=== PATIENT | female | born 1970 | race American Indian/Alaskan Native ===

== ENCOUNTER 2020-08-31 18:21 | Emergency (ER) | payer OTHER ==
[~2020-08-31] VITALS: Ht 170.2 cm; Wt 59.0 kg
[~2020-08-31 18:21] MED LIST: Ativan0.5 MG PO; SUBLOCADE SC; VENLAFAXINE HCL50 MG PO
== END 2020-08-31 20:34 | disposition home or self-care (01) ==
LOC: ER 18:21
DX: F11.23 Opioid dependence with withdrawal (principal); F17.200 Nicotine dependence, unspecified, uncomplicated; Z88.8 Allergy status to other drugs, medicaments and biological substances; Z79.899 Other long term (current) drug therapy
CPT/HCPCS: 99283

== ENCOUNTER 2020-10-05 07:00 | Emergency (ER) | payer OTHER ==
[~2020-10-05] VITALS: Ht 170.2 cm; Wt 70.3 kg
[~2020-10-05 07:00] MED LIST changes: +Atarax10 MG PO; +Ativan1 MG PO; +ESZO2 PO; +MINIPRESS2 M1 PO; +VENL150ER PO; +VENL75ER PO; +Vistaril25 MG PO
[2020-10-05] MEDS ORDERED: ACETAMINOPHEN500 MG PO (09:15)
== END 2020-10-05 09:35 | disposition home or self-care (01) ==
LOC: ER 07:00
DX: S46.811A Strain of other muscles, fascia and tendons at shoulder and upper arm level, right arm, initial encounter (principal); F17.210 Nicotine dependence, cigarettes, uncomplicated; Z88.8 Allergy status to other drugs, medicaments and biological substances; Z79.899 Other long term (current) drug therapy; X58.XXXA Exposure to other specified factors, initial encounter; Y99.0 Civilian activity done for income or pay
CPT/HCPCS: 72125; 96372; 99284-25; J1885

== ENCOUNTER → 2020-10-19 | Outpatient (CLI) | payer OTHER ==
[~2020-10-19] MED LIST changes: +ACETAMINOPHEN500 MG PO; +GABA300 PO; +METH40; +MIRT15 PO; +PREG150 PO
[2020-10-19 17:57] LABS: Appearance, Urine Clear (Clear); Bilirubin, Urine Neg (Neg); Blood, Urine Neg (Neg); Color, Urine Yellow (P-Yellow); Glucose Qualitative, Urine Neg (Neg); Ketones, Urine Neg (Neg); Leukocyte Esterase, Urine 1+ (Neg); Nitrite, Urine Neg (Neg); Protein, Urine Neg (Neg); Specific Gravity, Urine 1.015 (1.003-1.022); Urobilinogen, Urine NORM (Normal)
[2020-10-19 18:14] LABS: Bacteria Few /hpf; Red Blood Cells, Urine 0-2 /hpf (0-2); Squamous Epithelial Cells Few /hpf (Few); White Blood Cells, Urine 0-2 /hpf (0-5)
== END ==
LOC: LAB SRC 15:07 → LAB SHORT 15:07
PROVIDERS: Nurse Practitioner Family
DX: R35.0 Frequency of micturition (principal)
CPT/HCPCS: 81001; 87086

== ENCOUNTER 2020-12-04 08:58 | Emergency (ER) | payer OTHER ==
[~2020-12-04] VITALS: Ht 170.2 cm; Wt 76.2 kg
[~2020-12-04 08:58] MED LIST changes: -GABA300 PO; -METH40; -MIRT15 PO; -PREG150 PO
[2020-12-04 10:43] LABS: BASOPHILS ABSOLUTE AUTO 0.04 K/mm3 (0.00-0.23); BASOPHILS PERCENT AUTO 1 % (0-2); EOSINOPHILS ABSOLUTE AUTO 0.14 K/mm3 (0.00-0.68); EOSINOPHILS PERCENT AUTO 3 % (0-6); Hematocrit 33.4 % (33.0-51.0); IMMATURE GRAN ABSOLUTE AUTO 0.01 K/mm3 (0.00-0.10); IMMATURE GRAN PERCENT AUTO 0 % (0-1); LYMPHOCYTES ABSOLUTE AUTO 1.03 K/mm3 (0.84-5.20); LYMPHOCYTES PERCENT AUTO 23 % (21-46); MONOCYTES ABSOLUTE AUTO 0.57 K/mm3 (0.16-1.47); MONOCYTES PERCENT AUTO 13 % (4-13); Mean Corpuscular HGB Conc 32.9 g/dL (31.5-36.5); Mean Corpuscular Volume 88 fL (80-100); Mean Platelet Volume 9.7 fL (9.1-12.4); NEUTROPHILS ABSOLUTE AUTO 2.76 K/mm3 (1.96-9.15); NEUTROPHILS PERCENT AUTO 61 % (41-73); Platelet Count 190 K/mm3 (150-400); RDW Coefficient Variation 12.3 % (11.7-14.2); Red Blood Cell Count 3.79 M/mm3 (3.80-5.20); White Blood Cell Count 4.55 K/mm3 (4.00-11.30)
[2020-12-04 10:59] LABS: Alanine Aminotransfer (ALT/SGP 43 U/L (12-78); Albumin, Blood 3.3 g/dL (3.4-5.0); Albumin/Globulin Ratio 0.9 (0.8-1.8); Alk Phos 118 U/L (50-136); Anion Gap 3 mmol/L (6-16); Aspartate Aminotrans (AST/SGOT 38 U/L (12-37); Bilirubin, Total 0.2 mg/dL (0.1-1.0); Blood Urea Nitrogen 16 mg/dL (8-24); CO2, Blood 29 mmol/L (21-32); Calcium, Blood 8.4 mg/dL (8.5-10.1); Chloride, Blood 106 mmol/L (98-108); Creatinine, Blood 0.73 mg/dL (0.40-1.00); Globulin, Blood 3.7 g/dL (2.2-4.0); Glomerular Filtration Rate >60 (60-); Glucose, Blood 100 mg/dL (70-99); Potassium, Blood 4.5 mmol/L (3.5-5.5); Sodium, Blood 138 mmol/L (136-145); Troponin I <0.015 ng/mL (0.000-0.040)
== END 2020-12-04 11:53 | disposition home or self-care (01) ==
LOC: ER 08:58
PROVIDERS: Emergency Medicine
DX: S63.502A Unspecified sprain of left wrist, initial encounter (principal); R60.0 Localized edema; R11.2 Nausea with vomiting, unspecified; R10.13 Epigastric pain; Z88.8 Allergy status to other drugs, medicaments and biological substances; Z79.899 Other long term (current) drug therapy; W06.XXXA Fall from bed, initial encounter
CPT/HCPCS: 36415; 73110; 80053; 83690; 83880; 84484; 85025; 93005; 93010; 96374; 99284-25; J2405; J2550

== ENCOUNTER 2020-12-15 14:44 | Emergency (ER) | payer OTHER ==
[~2020-12-15] VITALS: Ht 170.2 cm; Wt 77.1 kg
[2020-12-15 15:51] LABS: BASOPHILS ABSOLUTE AUTO 0.06 K/mm3 (0.00-0.23); BASOPHILS PERCENT AUTO 1 % (0-2); EOSINOPHILS ABSOLUTE AUTO 0.37 K/mm3 (0.00-0.68); EOSINOPHILS PERCENT AUTO 9 % (0-6); Hematocrit 31.8 % (33.0-51.0); Hemoglobin 10.3 g/dL (11.5-16.0); IMMATURE GRAN ABSOLUTE AUTO 0.01 K/mm3 (0.00-0.10); IMMATURE GRAN PERCENT AUTO 0 % (0-1); LYMPHOCYTES PERCENT AUTO 28 % (21-46); MONOCYTES ABSOLUTE AUTO 0.66 K/mm3 (0.16-1.47); MONOCYTES PERCENT AUTO 15 % (4-13); Mean Corpuscular HGB 28.9 pg (26.0-34.0); Mean Corpuscular HGB Conc 32.4 g/dL (31.5-36.5); Mean Corpuscular Volume 89 fL (80-100); Mean Platelet Volume 9.4 fL (9.1-12.4); NEUTROPHILS ABSOLUTE AUTO 2.04 K/mm3 (1.96-9.15); NEUTROPHILS PERCENT AUTO 47 % (41-73); Platelet Count 316 K/mm3 (150-400); RDW Coefficient Variation 12.4 % (11.7-14.2); RDW Standard Deviation 40.3 fL (35.1-46.3); Red Blood Cell Count 3.57 M/mm3 (3.80-5.20); White Blood Cell Count 4.34 K/mm3 (4.00-11.30)
[2020-12-15] MEDS ORDERED: GABA300 PO (15:57)
[2020-12-15] MEDS ORDERED: PREG150 PO (15:58)
[2020-12-15] MEDS ORDERED: MIRT15 PO (16:00)
[2020-12-15] MEDS ORDERED: METH40 (16:01)
[2020-12-15 16:15] LABS: Alanine Aminotransfer (ALT/SGP 22 U/L (12-78); Albumin, Blood 3.2 g/dL (3.4-5.0); Albumin/Globulin Ratio 0.8 (0.8-1.8); Alk Phos 118 U/L (50-136); Anion Gap 6 mmol/L (6-16); Aspartate Aminotrans (AST/SGOT 21 U/L (12-37); Bilirubin, Total 0.2 mg/dL (0.1-1.0); Blood Urea Nitrogen 10 mg/dL (8-24); Bun/Creatinine Ratio 12.6 (12.0-20.0); CO2, Blood 27 mmol/L (21-32); Calcium, Blood 8.7 mg/dL (8.5-10.1); Chloride, Blood 109 mmol/L (98-108); Creatinine, Blood 0.79 mg/dL (0.40-1.00); Globulin, Blood 4.2 g/dL (2.2-4.0); Glomerular Filtration Rate >60 (60-); Glucose, Blood 89 mg/dL (70-99); Potassium, Blood 3.8 mmol/L (3.5-5.5); Sodium, Blood 142 mmol/L (136-145); Total Protein, Blood 7.4 g/dL (6.4-8.2)
== END 2020-12-15 17:24 | disposition home or self-care (01) ==
LOC: ER 14:44
PROVIDERS: Physician Assistant
DX: R51.9 Headache, unspecified (principal); R40.4 Transient alteration of awareness; F17.210 Nicotine dependence, cigarettes, uncomplicated; M79.671 Pain in right foot; Z88.8 Allergy status to other drugs, medicaments and biological substances; Z79.899 Other long term (current) drug therapy
CPT/HCPCS: 70450; 73620; 80053; 85025; 93005; 93010; 96374; 96375; 96376; 99284-25; J1885; J2060; J2765

== ENCOUNTER 2021-08-06 10:57 | Emergency (ER) | payer OTHER ==
[~2021-08-06] VITALS: Ht 170.2 cm; Wt 72.6 kg
[~2021-08-06 10:57] MED LIST changes: +GABA300 PO; +METH40; +MIRT15 PO; +PREG150 PO
[2021-08-06 11:42] LABS: BASOPHILS PERCENT AUTO 0 % (0-2); EOSINOPHILS PERCENT AUTO 0 % (0-6); Hematocrit 33.4 % (33.0-51.0); Hemoglobin 10.8 g/dL (11.5-16.0); IMMATURE GRAN ABSOLUTE AUTO 0.02 K/mm3 (0.00-0.10); IMMATURE GRAN PERCENT AUTO 0 % (0-1); LYMPHOCYTES ABSOLUTE AUTO 0.41 K/mm3 (0.84-5.20); LYMPHOCYTES PERCENT AUTO 8 % (21-46); MONOCYTES ABSOLUTE AUTO 0.34 K/mm3 (0.16-1.47); MONOCYTES PERCENT AUTO 7 % (4-13); Mean Corpuscular HGB 28.6 pg (26.0-34.0); Mean Corpuscular HGB Conc 32.3 g/dL (31.5-36.5); Mean Corpuscular Volume 88 fL (80-100); Mean Platelet Volume 9.7 fL (9.1-12.4); NEUTROPHILS ABSOLUTE AUTO 4.17 K/mm3 (1.96-9.15); NEUTROPHILS PERCENT AUTO 84 % (41-73); Platelet Count 165 K/mm3 (150-400); RDW Coefficient Variation 12.9 % (11.7-14.2); RDW Standard Deviation 41.3 fL (35.1-46.3); Red Blood Cell Count 3.78 M/mm3 (3.80-5.20); White Blood Cell Count 4.94 K/mm3 (4.00-11.30)
[2021-08-06 11:59] LABS: Albumin, Blood 2.9 g/dL (3.4-5.0); Albumin/Globulin Ratio 0.7 (0.8-1.8); Bilirubin, Total 0.5 mg/dL (0.1-1.0); Bun/Creatinine Ratio 10.8 (12.0-20.0); Calcium, Blood 7.8 mg/dL (8.5-10.1); Creatinine, Blood 1.02 mg/dL (0.40-1.00); Globulin, Blood 4.2 g/dL (2.2-4.0); Potassium, Blood 3.1 mmol/L (3.5-5.5); Total Protein, Blood 7.1 g/dL (6.4-8.2)
== END 2021-08-06 13:20 | disposition home or self-care (01) ==
LOC: ER 10:57
PROVIDERS: Emergency Medicine
DX: U07.1 COVID-19 (principal); E87.6 Hypokalemia; F17.210 Nicotine dependence, cigarettes, uncomplicated; Z88.8 Allergy status to other drugs, medicaments and biological substances; Z79.899 Other long term (current) drug therapy
CPT/HCPCS: 36415; 71045; 71046; 80053; 85025; 99284-25; A9270; J7030; M0243; Q0243

== ENCOUNTER 2021-11-07 17:30 | Emergency (ER) | payer OTHER ==
[~2021-11-07] VITALS: Ht 167.6 cm; Wt 79.8 kg
[2021-11-07 18:15] LABS: BASOPHILS ABSOLUTE AUTO 0.05 K/mm3 (0.00-0.23); BASOPHILS PERCENT AUTO 1 % (0-2); EOSINOPHILS ABSOLUTE AUTO 0.12 K/mm3 (0.00-0.68); EOSINOPHILS PERCENT AUTO 3 % (0-6); Hematocrit 37.9 % (33.0-51.0); Hemoglobin 12.5 g/dL (11.5-16.0); IMMATURE GRAN PERCENT AUTO 0 % (0-1); LYMPHOCYTES ABSOLUTE AUTO 0.89 K/mm3 (0.84-5.20); LYMPHOCYTES PERCENT AUTO 24 % (21-46); MONOCYTES ABSOLUTE AUTO 0.47 K/mm3 (0.16-1.47); MONOCYTES PERCENT AUTO 12 % (4-13); Mean Corpuscular HGB 28.9 pg (26.0-34.0); Mean Corpuscular Volume 88 fL (80-100); Mean Platelet Volume 10.2 fL (9.1-12.4); NEUTROPHILS ABSOLUTE AUTO 2.26 K/mm3 (1.96-9.15); NEUTROPHILS PERCENT AUTO 60 % (41-73); Platelet Count 236 K/mm3 (150-400); RDW Coefficient Variation 12.6 % (11.7-14.2); RDW Standard Deviation 40.2 fL (35.1-46.3); Red Blood Cell Count 4.33 M/mm3 (3.80-5.20); White Blood Cell Count 3.79 K/mm3 (4.00-11.30)
[2021-11-07 18:33] LABS: Albumin, Blood 3.7 g/dL (3.4-5.0); Albumin/Globulin Ratio 0.9 (0.8-1.8); Bilirubin, Total 0.3 mg/dL (0.1-1.0); Calcium, Blood 8.4 mg/dL (8.5-10.1); Creatinine, Blood 1.07 mg/dL (0.40-1.00); Globulin, Blood 4.2 g/dL (2.2-4.0); Total Protein, Blood 7.9 g/dL (6.4-8.2)
[2021-11-08] MEDS ORDERED: Colace100 MG PO (22:42)
== END 2021-11-07 20:21 | disposition home or self-care (01) ==
LOC: ER 17:30
PROVIDERS: Physician Assistant
DX: R10.10 Upper abdominal pain, unspecified (principal); F17.210 Nicotine dependence, cigarettes, uncomplicated; Z79.899 Other long term (current) drug therapy; Z88.8 Allergy status to other drugs, medicaments and biological substances
CPT/HCPCS: 80053; 83690; 83735; 84484; 85025; 93005; 93010; 96374; 96375; 99284-25; A9270; J1170; J2405; J2550; J7030

== ENCOUNTER 2021-11-13 16:19 | Emergency (ER) | payer OTHER ==
[~2021-11-13] VITALS: Ht 170.2 cm; Wt 79.4 kg
[~2021-11-13 16:19] MED LIST changes: +Colace100 MG PO
[2021-11-13 17:03] LABS: BASOPHILS ABSOLUTE AUTO 0.04 K/mm3 (0.00-0.23); BASOPHILS PERCENT AUTO 1 % (0-2); EOSINOPHILS ABSOLUTE AUTO 0.11 K/mm3 (0.00-0.68); EOSINOPHILS PERCENT AUTO 2 % (0-6); Hematocrit 33.4 % (33.0-51.0); Hemoglobin 10.9 g/dL (11.5-16.0); IMMATURE GRAN ABSOLUTE AUTO 0.01 K/mm3 (0.00-0.10); IMMATURE GRAN PERCENT AUTO 0 % (0-1); LYMPHOCYTES ABSOLUTE AUTO 0.89 K/mm3 (0.84-5.20); LYMPHOCYTES PERCENT AUTO 18 % (21-46); MONOCYTES ABSOLUTE AUTO 0.52 K/mm3 (0.16-1.47); MONOCYTES PERCENT AUTO 11 % (4-13); Mean Corpuscular HGB 28.7 pg (26.0-34.0); Mean Corpuscular HGB Conc 32.6 g/dL (31.5-36.5); Mean Corpuscular Volume 88 fL (80-100); Mean Platelet Volume 9.7 fL (9.1-12.4); NEUTROPHILS ABSOLUTE AUTO 3.36 K/mm3 (1.96-9.15); NEUTROPHILS PERCENT AUTO 68 % (41-73); Platelet Count 227 K/mm3 (150-400); RDW Coefficient Variation 12.8 % (11.7-14.2); RDW Standard Deviation 40.9 fL (35.1-46.3); White Blood Cell Count 4.93 K/mm3 (4.00-11.30)
[2021-11-13 17:20] LABS: Source, Urine Clean Catch
[2021-11-13 17:22] LABS: Albumin, Blood 3.6 g/dL (3.4-5.0); Bilirubin, Total 0.2 mg/dL (0.1-1.0); Bun/Creatinine Ratio 13.9 (12.0-20.0); Calcium, Blood 8.4 mg/dL (8.5-10.1); Creatinine, Blood 1.01 mg/dL (0.40-1.00); Globulin, Blood 3.7 g/dL (2.2-4.0); Potassium, Blood 3.6 mmol/L (3.5-5.5); Total Protein, Blood 7.3 g/dL (6.4-8.2)
[2021-11-13 17:25] LABS: Appearance, Urine Clear (Clear); Bilirubin, Urine Neg (Neg); Blood, Urine Neg (Neg); Color, Urine Yellow (P-Yellow); Glucose Qualitative, Urine Neg (Neg); Ketones, Urine Neg (Neg); Leukocyte Esterase, Urine Neg (Neg); Nitrite, Urine Neg (Neg); Protein, Urine Neg (Neg); Specific Gravity, Urine 1.015 (1.003-1.022); Urobilinogen, Urine NORM (Normal)
[2021-11-13] MEDS ORDERED: SENNA LAXATIVE8.6 MG PO (17:46)
[2021-11-13] MEDS ORDERED: Magic Bullet10 MG PR (17:46)
[2021-11-13] MEDS ORDERED: MAGCIT300 PO (17:46)
== END 2021-11-13 17:59 | disposition home or self-care (01) ==
LOC: ER 16:19
PROVIDERS: Physician Assistant
DX: K59.00 Constipation, unspecified (principal); F17.210 Nicotine dependence, cigarettes, uncomplicated
CPT/HCPCS: 36415; 80053; 81003; 83690; 85025; 99284; A9270; J2405; J7030

== ENCOUNTER 2022-02-05 14:46 | Emergency (ER) | payer OTHER ==
[~2022-02-05] VITALS: Ht 170.2 cm; Wt 86.2 kg
[~2022-02-05 14:46] MED LIST changes: +MAGCIT300 PO; +Magic Bullet10 MG PR; +SENNA LAXATIVE8.6 MG PO
[2022-02-05 15:37] LABS: Hematocrit 36.6 % (33.0-51.0); Hemoglobin 11.8 g/dL (11.5-16.0); Mean Corpuscular HGB 28.8 pg (26.0-34.0); Mean Corpuscular HGB Conc 32.2 g/dL (31.5-36.5); Mean Corpuscular Volume 89 fL (80-100); Mean Platelet Volume 9.5 fL (9.1-12.4); Platelet Count 242 K/mm3 (150-400); RDW Coefficient Variation 12.1 % (11.7-14.2); RDW Standard Deviation 39.6 fL (35.1-46.3); White Blood Cell Count 4.02 K/mm3 (4.00-11.30)
[2022-02-05 16:00] LABS: Albumin, Blood 3.3 g/dL (3.4-5.0); Albumin/Globulin Ratio 0.9 (0.8-1.8); Bilirubin, Total 0.2 mg/dL (0.1-1.0); Bun/Creatinine Ratio 19.7 (12.0-20.0); Calcium, Blood 8.6 mg/dL (8.5-10.1); Creatinine, Blood 0.76 mg/dL (0.40-1.00); Globulin, Blood 3.7 g/dL (2.2-4.0); Potassium, Blood 4.2 mmol/L (3.5-5.5)
[2022-02-05 16:32] LABS: Source, Urine Clean Catch
[2022-02-05 16:36] LABS: BASOPHILS PERCENT MAN 0 % (0-2); EOSINOPHILS ABSOLUTE MAN 0.04 K/mm3 (0.00-0.68); EOSINOPHILS PERCENT MAN 1 % (0-6); LYMPHOCYTES ABSOLUTE MAN 1.12 K/mm3 (0.84-5.20); LYMPHOCYTES PERCENT MAN 28 % (21-46); MONOCYTES ABSOLUTE MAN 0.32 K/mm3 (0.16-1.47); MONOCYTES PERCENT MAN 8 % (4-13); NEUTROPHILS ABSOLUTE MAN 2.53 K/mm3 (1.96-9.15); SEG NEUTROPHILS PERCENT MAN 63 % (41-73); TOTAL CELLS COUNTED 100
[2022-02-05 16:42] LABS: Appearance, Urine Clear (Clear); Bilirubin, Urine Neg (Neg); Blood, Urine Neg (Neg); Color, Urine Yellow (P-Yellow); Glucose Qualitative, Urine Neg (Neg); Ketones, Urine Neg (Neg); Leukocyte Esterase, Urine 1+ (Neg); Nitrite, Urine Neg (Neg); Protein, Urine Neg (Neg); Specific Gravity, Urine 1.025 (1.003-1.022); Urobilinogen, Urine NORM (Normal)
[2022-02-05 17:02] LABS: Bacteria Mod /hpf; Red Blood Cells, Urine 0-2 /hpf (0-2); Squamous Epithelial Cells Few /hpf (Few)
[2022-02-05] MEDS ORDERED: PROM25 PO (18:22)
== END 2022-02-05 19:12 | disposition home or self-care (01) ==
LOC: ER 14:46
PROVIDERS: Physician Assistant
DX: R10.13 Epigastric pain (principal); R10.812 Left upper quadrant abdominal tenderness; R11.2 Nausea with vomiting, unspecified; F41.9 Anxiety disorder, unspecified; F17.210 Nicotine dependence, cigarettes, uncomplicated; Z88.8 Allergy status to other drugs, medicaments and biological substances; Z79.899 Other long term (current) drug therapy
CPT/HCPCS: 36415; 71045; 80053; 81001; 83690; 84484; 85025; 87086; 93005; 93010; A9270; J1790

== ENCOUNTER 2022-02-23 11:00 | Emergency (ER) | payer OTHER ==
[~2022-02-23] VITALS: Ht 170.2 cm; Wt 86.2 kg
[~2022-02-23 11:00] MED LIST changes: +PROM25 PO
[2022-02-23 11:31] LABS: BASOPHILS ABSOLUTE AUTO 0.03 K/mm3 (0.00-0.23); BASOPHILS PERCENT AUTO 1 % (0-2); EOSINOPHILS ABSOLUTE AUTO 0.07 K/mm3 (0.00-0.68); EOSINOPHILS PERCENT AUTO 2 % (0-6); Hematocrit 39.2 % (33.0-51.0); Hemoglobin 12.5 g/dL (11.5-16.0); IMMATURE GRAN ABSOLUTE AUTO 0.01 K/mm3 (0.00-0.10); IMMATURE GRAN PERCENT AUTO 0 % (0-1); LYMPHOCYTES PERCENT AUTO 15 % (21-46); MONOCYTES ABSOLUTE AUTO 0.48 K/mm3 (0.16-1.47); MONOCYTES PERCENT AUTO 12 % (4-13); Mean Corpuscular HGB 28.6 pg (26.0-34.0); Mean Corpuscular HGB Conc 31.9 g/dL (31.5-36.5); Mean Corpuscular Volume 90 fL (80-100); Mean Platelet Volume 9.3 fL (9.1-12.4); NEUTROPHILS ABSOLUTE AUTO 2.81 K/mm3 (1.96-9.15); NEUTROPHILS PERCENT AUTO 70 % (41-73); Platelet Count 255 K/mm3 (150-400); RDW Coefficient Variation 12.1 % (11.7-14.2); RDW Standard Deviation 39.8 fL (35.1-46.3); Red Blood Cell Count 4.37 M/mm3 (3.80-5.20)
[2022-02-23 11:48] LABS: Albumin, Blood 3.7 g/dL (3.4-5.0); Albumin/Globulin Ratio 0.9 (0.8-1.8); Bilirubin, Total 0.2 mg/dL (0.1-1.0); Calcium, Blood 9.1 mg/dL (8.5-10.1); Creatinine, Blood 0.81 mg/dL (0.40-1.00); Potassium, Blood 4.4 mmol/L (3.5-5.5); Total Protein, Blood 7.7 g/dL (6.4-8.2)
[2022-02-23] MEDS ORDERED: BUPR75 (13:06)
[2022-02-23 13:12] LABS: Source, Urine Clean Catch
[2022-02-23 13:14] LABS: Appearance, Urine Clear (Clear); Bilirubin, Urine Neg (Neg); Blood, Urine Neg (Neg); Color, Urine Yellow (P-Yellow); Glucose Qualitative, Urine Neg (Neg); Ketones, Urine Neg (Neg); Leukocyte Esterase, Urine Neg (Neg); Nitrite, Urine Neg (Neg); Protein, Urine Neg (Neg); Specific Gravity, Urine 1.015 (1.003-1.022); Urobilinogen, Urine NORM (Normal)
== END 2022-02-23 15:09 | disposition home or self-care (01) ==
LOC: ER 11:00
PROVIDERS: Physician Assistant
DX: R10.13 Epigastric pain (principal); F17.210 Nicotine dependence, cigarettes, uncomplicated; Z79.899 Other long term (current) drug therapy
CPT/HCPCS: 36415; 74177; 80053; 81003; 83690; 85025; 96374; 96375; 99284-25; J1885; J2405; J2550; J7030; Q9967

== ENCOUNTER 2022-06-24 08:20 | Day surgery (SDC) | payer OTHER ==
[~2022-06-24] VITALS: Ht 170.2 cm; Wt 88.5 kg
[~2022-06-24 08:20] MED LIST changes: +BUPR75 PO; +Methadone S5 MG/5 ML PO
--- NOTE | 2022-06-24 10:25 | NUR ---
06/24/22 1025 Aliya Serrano KNEE POST
--- NOTE | 2022-06-24 12:45 | NUR ---
06/24/22 1245 Rose,Spenser PT D/C'D HOME, AOX3, VS WNL, RESP CTA ON RA, PAIN 12/19 ACCEPTABLE TO PT TO D/C HOME, DENIES ANY C/O, DENIES ANY NEEDS, DENIES N/V, D/C INSTRUCTIONS GIVEN TO SON AND PT, SON AND PT V/U OF D/C INSTRUCTIONS, PERSONAL BELONGINGS RETURNED TO PT, PIV D/C'D CANNULA INTACT COVERED WITH 2X2 GAUZE AND COBAN, PT D/C'D VIA WC TO CAR DRIVEN BY SON. PT D/C'D IN NAD.
== END 2022-06-24 12:33 | disposition home or self-care (01) ==
LOC: ORSCSDS 08:20
PROVIDERS: Orthopaedic Surgery
PROC: 0SBD4ZZ Excision of Left Knee Joint, Percutaneous Endoscopic Approach (ICD-10-PCS; principal; 2022-06-24 09:45)
PROC: 0SBD0ZZ Excision of Left Knee Joint, Open Approach (ICD-10-PCS; principal; 2022-06-24 09:45)
DX: S83.232A Complex tear of medial meniscus, current injury, left knee, initial encounter (principal); M23.022 Cystic meniscus, posterior horn of medial meniscus, left knee; M94.262 Chondromalacia, left knee; F17.210 Nicotine dependence, cigarettes, uncomplicated
CPT/HCPCS: J0171; J0690; J1100; J2704; J2795; J3010

== ENCOUNTER 2022-10-10 09:10 | Day surgery (SDC) | payer OTHER ==
[~2022-10-10] VITALS: Ht 170.2 cm; Wt 87.6 kg
[2022-10-10] MEDS ORDERED: ASPI81CH (09:30)
[2022-10-10] MEDS ORDERED: METH40 (09:31)
[2022-10-10] MEDS ORDERED: MIRT30 (09:31)
[2022-10-10] MEDS ORDERED: PREG100 (09:31)
[2022-10-10] MEDS ORDERED: METF500 (09:45)
== END 2022-10-10 12:16 | disposition home or self-care (01) ==
LOC: ORSCSDS 09:10
PROVIDERS: Student in an Organized Health Care Education/Training Program
PROC: 0DJD8ZZ Inspection of Lower Intestinal Tract, Via Natural or Artificial Opening Endoscopic (ICD-10-PCS; principal; 2022-10-10 10:30)
PROC: 0DB78ZX Excision of Stomach, Pylorus, Via Natural or Artificial Opening Endoscopic, Diagnostic (ICD-10-PCS; principal; 2022-10-10 10:30)
PROC: 0DB58ZX Excision of Esophagus, Via Natural or Artificial Opening Endoscopic, Diagnostic (ICD-10-PCS; principal; 2022-10-10 10:30)
PROC: 0DB98ZX Excision of Duodenum, Via Natural or Artificial Opening Endoscopic, Diagnostic (ICD-10-PCS; principal; 2022-10-10 10:30)
DX: R11.0 Nausea (principal); R10.9 Unspecified abdominal pain; K21.9 Gastro-esophageal reflux disease without esophagitis; K29.70 Gastritis, unspecified, without bleeding; K92.1 Melena; R15.0 Incomplete defecation; B37.81 Candidal esophagitis; K64.8 Other hemorrhoids; Z87.891 Personal history of nicotine dependence; E11.9 Type 2 diabetes mellitus without complications; Z79.899 Other long term (current) drug therapy; Z79.84 Long term (current) use of oral hypoglycemic drugs; Z79.82 Long term (current) use of aspirin
CPT/HCPCS: 82947; 88305; 88342; J2704; J7120

== ENCOUNTER 2023-03-24 13:35 | Emergency (ER) | payer OTHER ==
[~2023-03-24] VITALS: Ht 170.2 cm; Wt 89.4 kg
[~2023-03-24 13:35] MED LIST changes: +ASPI81CH; +METF500; +MIRT30; +PREG100
[2023-03-24 14:10] LABS: BASOPHILS ABSOLUTE AUTO 0.03 K/mm3 (0.00-0.23); BASOPHILS PERCENT AUTO 1 % (0-2); EOSINOPHILS ABSOLUTE AUTO 0.15 K/mm3 (0.00-0.68); EOSINOPHILS PERCENT AUTO 3 % (0-6); Hematocrit 34.6 % (33.0-51.0); Hemoglobin 11.3 g/dL (11.5-16.0); IMMATURE GRAN ABSOLUTE AUTO 0.01 K/mm3 (0.00-0.10); IMMATURE GRAN PERCENT AUTO 0 % (0-1); LYMPHOCYTES ABSOLUTE AUTO 0.96 K/mm3 (0.84-5.20); LYMPHOCYTES PERCENT AUTO 21 % (21-46); MONOCYTES ABSOLUTE AUTO 0.56 K/mm3 (0.16-1.47); MONOCYTES PERCENT AUTO 12 % (4-13); Mean Corpuscular HGB Conc 32.7 g/dL (31.5-36.5); Mean Corpuscular Volume 89 fL (80-100); Mean Platelet Volume 9.5 fL (9.1-12.4); NEUTROPHILS ABSOLUTE AUTO 2.82 K/mm3 (1.96-9.15); NEUTROPHILS PERCENT AUTO 62 % (41-73); Platelet Count 221 K/mm3 (150-400); RDW Coefficient Variation 12.6 % (11.7-14.2); RDW Standard Deviation 40.6 fL (35.1-46.3); White Blood Cell Count 4.53 K/mm3 (4.00-11.30)
[2023-03-24 14:35] LABS: Albumin, Blood 3.5 g/dL (3.4-5.0); Albumin/Globulin Ratio 0.9 (0.8-1.8); Bilirubin, Total 0.2 mg/dL (0.1-1.0); Bun/Creatinine Ratio 8.7 (12.0-20.0); Calcium, Blood 8.3 mg/dL (8.5-10.1); Creatinine, Blood 1.04 mg/dL (0.40-1.00); Globulin, Blood 3.7 g/dL (2.2-4.0); Potassium, Blood 3.9 mmol/L (3.5-5.5); Total Protein, Blood 7.2 g/dL (6.4-8.2)
[2023-03-24 14:47] LABS: Source, Urine Clean Catch
[2023-03-24 14:59] LABS: Appearance, Urine Clear (Clear); Bilirubin, Urine Neg (Neg); Blood, Urine Neg (Neg); Color, Urine Yellow (P-Yellow); Glucose Qualitative, Urine Neg (Neg); Ketones, Urine Neg (Neg); Leukocyte Esterase, Urine 1+ (Neg); Nitrite, Urine Neg (Neg); Protein, Urine 2+ (Neg); Specific Gravity, Urine 1.025 (1.003-1.022); Urobilinogen, Urine NORM (Normal)
[2023-03-24 15:32] LABS: Bacteria Few /hpf; Mucus Mod (0-Heavy); Red Blood Cells, Urine 0-2 /hpf (0-2); Squamous Epithelial Cells Few /hpf (Few)
[2023-03-24 16:21] VITALS: BP 113/67
== END 2023-03-24 17:46 | disposition home or self-care (01) ==
LOC: ER 13:35
PROVIDERS: Physician Assistant
DX: R10.9 Unspecified abdominal pain (principal); F17.200 Nicotine dependence, unspecified, uncomplicated; Z88.8 Allergy status to other drugs, medicaments and biological substances
CPT/HCPCS: 74177; 80053; 81001; 83690; 84484; 85025; 87086; 93005; 93010; 96361; 96374-59; 99284-25; A9270; J1170; J7030; Q9967

== ENCOUNTER 2023-04-25 06:42 | Day surgery (SDC) | payer OTHER ==
[~2023-04-25] VITALS: Ht 170.2 cm; Wt 91.2 kg
[2023-04-25] MEDS ORDERED: MIRALAX17 GM (07:39)
[2023-04-25] MEDS ORDERED: Diflucan100 MG (07:39)
[2023-04-25 09:13] VITALS: BP 96/58
--- NOTE | 2023-04-25 09:23 | NUR ---
04/25/23 0923 JAYSON FRYE PT CAME IN TP PRE OP VERY DROWSY/ SEDATED ACTING (SLURRED SPEECH, FALLING ASLEEP WHEN SPOKEN TO). STATED THAT SHE TOOK ALL HER MEDS THIS MORNING WHICH INCLUDED HER TWO ANTIDEPRESSANTS AND METHADONE. PT STATES THAT SHE HASNT SLEPT IN TWO DAYS. PT IS STEADY ON FEET WHEN GETTING DRESSED AND ABLE TO WALK WITHOUT DIFFICULTY SEEN. WC OUT IN WC
== END 2023-04-25 09:09 | disposition home or self-care (01) ==
LOC: ORSCSDS 06:42
PROVIDERS: Internal Medicine Gastroenterology
PROC: 0DJD8ZZ Inspection of Lower Intestinal Tract, Via Natural or Artificial Opening Endoscopic (ICD-10-PCS; principal; 2023-04-25 08:00)
DX: R10.9 Unspecified abdominal pain (principal); K59.00 Constipation, unspecified; G47.33 Obstructive sleep apnea (adult) (pediatric); E66.9 Obesity, unspecified; F32.A Depression, unspecified; F41.1 Generalized anxiety disorder; Z68.31 Body mass index [BMI] 31.0-31.9, adult; F11.20 Opioid dependence, uncomplicated; F14.20 Cocaine dependence, uncomplicated; F10.20 Alcohol dependence, uncomplicated; F15.20 Other stimulant dependence, uncomplicated; F43.10 Post-traumatic stress disorder, unspecified; F17.210 Nicotine dependence, cigarettes, uncomplicated; Z79.82 Long term (current) use of aspirin; Z79.899 Other long term (current) drug therapy
CPT/HCPCS: 82947; J2001; J2704; J7120

== ENCOUNTER 2023-04-28 14:44 | Emergency (ER) | payer OTHER ==
[~2023-04-28] VITALS: Ht 170.2 cm; Wt 88.5 kg
[~2023-04-28 14:44] MED LIST changes: +Diflucan100 MG; +MIRALAX17 GM
[2023-04-28 15:53] LABS: BASOPHILS ABSOLUTE AUTO 0.05 K/mm3 (0.00-0.23); BASOPHILS PERCENT AUTO 1 % (0-2); EOSINOPHILS ABSOLUTE AUTO 0.19 K/mm3 (0.00-0.68); EOSINOPHILS PERCENT AUTO 3 % (0-6); Hematocrit 37.1 % (33.0-51.0); Hemoglobin 12.4 g/dL (11.5-16.0); IMMATURE GRAN ABSOLUTE AUTO 0.01 K/mm3 (0.00-0.10); IMMATURE GRAN PERCENT AUTO 0 % (0-1); LYMPHOCYTES ABSOLUTE AUTO 0.92 K/mm3 (0.84-5.20); LYMPHOCYTES PERCENT AUTO 16 % (21-46); MONOCYTES ABSOLUTE AUTO 0.65 K/mm3 (0.16-1.47); MONOCYTES PERCENT AUTO 11 % (4-13); Mean Corpuscular HGB 29.3 pg (26.0-34.0); Mean Corpuscular HGB Conc 33.4 g/dL (31.5-36.5); Mean Corpuscular Volume 88 fL (80-100); Mean Platelet Volume 9.4 fL (9.1-12.4); NEUTROPHILS ABSOLUTE AUTO 4.04 K/mm3 (1.96-9.15); NEUTROPHILS PERCENT AUTO 69 % (41-73); Platelet Count 216 K/mm3 (150-400); RDW Coefficient Variation 12.2 % (11.7-14.2); RDW Standard Deviation 39.5 fL (35.1-46.3); Red Blood Cell Count 4.23 M/mm3 (3.80-5.20); White Blood Cell Count 5.86 K/mm3 (4.00-11.30)
[2023-04-28 16:05] VITALS: BP 111/78
[2023-04-28 16:12] LABS: Albumin, Blood 3.8 g/dL (3.4-5.0); Bilirubin, Total 0.3 mg/dL (0.1-1.0); Bun/Creatinine Ratio 13.2 (12.0-20.0); Calcium, Blood 8.9 mg/dL (8.5-10.1); Creatinine, Blood 1.14 mg/dL (0.40-1.00); Globulin, Blood 3.8 g/dL (2.2-4.0); Potassium, Blood 4.2 mmol/L (3.5-5.5); Total Protein, Blood 7.6 g/dL (6.4-8.2)
== END 2023-04-28 18:51 | disposition home or self-care (01) ==
LOC: ER 14:44
PROVIDERS: Student in an Organized Health Care Education/Training Program
DX: G89.18 Other acute postprocedural pain (principal); K59.00 Constipation, unspecified; Z88.8 Allergy status to other drugs, medicaments and biological substances; Z79.899 Other long term (current) drug therapy; Z79.82 Long term (current) use of aspirin; F43.10 Post-traumatic stress disorder, unspecified; F17.210 Nicotine dependence, cigarettes, uncomplicated
CPT/HCPCS: 74177; 80053; 83690; 85025; 99284-25; Q9967

== ENCOUNTER 2023-10-26 14:20 | Emergency (ER) | payer OTHER ==
[~2023-10-26] VITALS: Ht 170.2 cm; Wt 86.2 kg
[2023-10-26 15:25] LABS: Albumin, Blood 3.3 g/dL (3.4-5.0); Bilirubin, Total 0.2 mg/dL (0.1-1.0); Bun/Creatinine Ratio 14.2 (12.0-20.0); Calcium, Blood 8.5 mg/dL (8.5-10.1); Creatinine, Blood 0.92 mg/dL (0.40-1.00); Globulin, Blood 3.4 g/dL (2.2-4.0); Magnesium, Blood 2.3 mg/dL (1.6-2.4); Total Protein, Blood 6.7 g/dL (6.4-8.2)
[2023-10-26 16:09] LABS: U Amphetamine Screen Not Detected; U Barbituate Screen Not Detected; U Benzodiazapine Screen Not Detected; U Buprenorphine Screen Not Detected; U Cannabinoids Screen Not Detected; U Cocaine Screen Not Detected; U Methadone Screen DETECTED; U Methamphetamine Screen Not Detected; U Opiates Screen Not Detected; U Oxycodone Screen Not Detected; U Phencyclidine Screen Not Detected
[2023-10-26 17:47] LABS: BASOPHILS ABSOLUTE AUTO 0.05 K/mm3 (0.00-0.23); BASOPHILS PERCENT AUTO 1 % (0-2); EOSINOPHILS ABSOLUTE AUTO 0.22 K/mm3 (0.00-0.68); EOSINOPHILS PERCENT AUTO 4 % (0-6); Hemoglobin 11.2 g/dL (11.5-16.0); IMMATURE GRAN ABSOLUTE AUTO 0.01 K/mm3 (0.00-0.10); IMMATURE GRAN PERCENT AUTO 0 % (0-1); LYMPHOCYTES ABSOLUTE AUTO 1.31 K/mm3 (0.84-5.20); LYMPHOCYTES PERCENT AUTO 26 % (21-46); MONOCYTES ABSOLUTE AUTO 0.49 K/mm3 (0.16-1.47); MONOCYTES PERCENT AUTO 10 % (4-13); Mean Corpuscular HGB 29.2 pg (26.0-34.0); Mean Corpuscular HGB Conc 32.9 g/dL (31.5-36.5); Mean Corpuscular Volume 89 fL (80-100); Mean Platelet Volume 9.5 fL (9.1-12.4); NEUTROPHILS ABSOLUTE AUTO 2.95 K/mm3 (1.96-9.15); NEUTROPHILS PERCENT AUTO 59 % (41-73); Platelet Count 200 K/mm3 (150-400); RDW Coefficient Variation 12.5 % (11.7-14.2); RDW Standard Deviation 40.5 fL (35.1-46.3); Red Blood Cell Count 3.84 M/mm3 (3.80-5.20); White Blood Cell Count 5.03 K/mm3 (4.00-11.30)
[2023-10-26 19:00] VITALS: BP 108/73
== END 2023-10-26 20:04 | disposition home or self-care (01) ==
LOC: ER 14:20
PROVIDERS: Physician Assistant
DX: R40.4 Transient alteration of awareness (principal); R44.1 Visual hallucinations; R42 Dizziness and giddiness; T42.6X5A Adverse effect of other antiepileptic and sedative-hypnotic drugs, initial encounter; F17.210 Nicotine dependence, cigarettes, uncomplicated; F43.10 Post-traumatic stress disorder, unspecified; Z79.82 Long term (current) use of aspirin; Z79.899 Other long term (current) drug therapy; Z88.1 Allergy status to other antibiotic agents
CPT/HCPCS: 70450; 80053; 83735; 85025; 99285-25

== ENCOUNTER 2024-04-28 03:34 | Emergency (ER) | payer OTHER ==
[~2024-04-28] VITALS: Ht 167.6 cm; Wt 90.7 kg
[~2024-04-28 03:34] MED LIST changes: +Budeprion Xl300 MG PO; +CLONAZEPAM1 MG PO; +DESVENLAFAXINE50 MG; +METH40 PO; +Premarin0.3 MG PO
[2024-04-28] MEDS ORDERED: NS 1,000 ML IV SCH ×3 (03:55→09:05)
[2024-04-28 04:06] LABS: BASOPHILS ABSOLUTE AUTO 0.08 K/mm3 (0.00-0.23); BASOPHILS PERCENT AUTO 0 % (0-2); EOSINOPHILS ABSOLUTE AUTO 0.01 K/mm3 (0.00-0.68); EOSINOPHILS PERCENT AUTO 0 % (0-6); Hematocrit 47.2 % (33.0-51.0); Hemoglobin 15.5 g/dL (11.5-16.0); IMMATURE GRAN ABSOLUTE AUTO 0.16 K/mm3 (0.00-0.10); IMMATURE GRAN PERCENT AUTO 1 % (0-1); LYMPHOCYTES ABSOLUTE AUTO 1.19 K/mm3 (0.84-5.20); LYMPHOCYTES PERCENT AUTO 6 % (21-46); MONOCYTES ABSOLUTE AUTO 1.52 K/mm3 (0.16-1.47); MONOCYTES PERCENT AUTO 7 % (4-13); Mean Corpuscular HGB 29.2 pg (26.0-34.0); Mean Corpuscular HGB Conc 32.8 g/dL (31.5-36.5); Mean Corpuscular Volume 89 fL (80-100); Mean Platelet Volume 9.3 fL (9.1-12.4); NEUTROPHILS ABSOLUTE AUTO 18.42 K/mm3 (1.96-9.15); NEUTROPHILS PERCENT AUTO 86 % (41-73); Platelet Count 368 K/mm3 (150-400); RDW Standard Deviation 42.4 fL (35.1-46.3); Red Blood Cell Count 5.31 M/mm3 (3.80-5.20); White Blood Cell Count 21.38 K/mm3 (4.00-11.30)
[2024-04-28] MEDS ORDERED: Piperacillin/Tazobactam Sod 3.375 GM in NS 100 ML IV ONE (04:20)
[2024-04-28 04:31] LABS: Base Excess Venous -11.5 mmol/L; Bicarbonate Venous 15.5 mmol/L (24.0-30.0); PCO2 Venous 33.3 mmHg (38-42); pH Blood Venous 7.27 (7.34-7.37)
[2024-04-28 04:31] LABS: Albumin, Blood 3.5 g/dL (3.4-5.0); Albumin/Globulin Ratio 0.7 (0.8-1.8); Bilirubin, Total 0.5 mg/dL (0.1-1.0); Bun/Creatinine Ratio 12.3 (12.0-20.0); Calcium, Blood 7.7 mg/dL (8.5-10.1); Creatinine, Blood 2.92 mg/dL (0.40-1.00); Globulin, Blood 5.2 g/dL (2.2-4.0); Magnesium, Blood 3.5 mg/dL (1.6-2.4); Potassium, Blood 5.7 mmol/L (3.5-5.5); Total Protein, Blood 8.7 g/dL (6.4-8.2)
[2024-04-28] MEDS ORDERED: Albuterol 2.5 MG/3 ML VIAL INH SCH ×2 (04:35→04:45)
[2024-04-28] MEDS ORDERED: Calcium Gluconate 10% 100 MG/ML INJ IV ONE (04:35)
[2024-04-28] MEDS ORDERED: Insulin Regular 100 Unit/ML 1ML Dose IV ONE (04:35)
[2024-04-28] MEDS ORDERED: Dextrose 50% 50 ML Syringe IV ONE (04:35)
[2024-04-28] MEDS ORDERED: Sodium Bicarb 8.4% 1 MEQ/ML 50 ML Vial IV ONE (04:35)
[2024-04-28 04:46] LABS: Influenza A, PCR NEGATIVE (NEGATIVE); Influenza B, PCR NEGATIVE (NEGATIVE); Resp Syncytial Virus, PCR NEGATIVE (NEGATIVE)
[2024-04-28] MEDS ORDERED: Dextrose 50% 50 ML Vial IV ONE (04:50)
[2024-04-28 04:51] LABS: Beta-hydroxybutyrate 3.8 mg/dL (0.2-2.8)
[2024-04-28] MEDS ORDERED: CALCIUM GLUC IN NACL, ISO-OSM 50 ML IV ONE (05:00)
[2024-04-28] MEDS ORDERED: Morphine Sulfate 4 MG/1 ML Injection IV ONE (05:15)
[2024-04-28 05:27] LABS: International Normalized Ratio 1.17; Prothrombin Time Results 12.4 Sec (9.7-11.5)
[2024-04-28 05:35] LABS: Source, Urine Clean Catch
[2024-04-28 05:37] LABS: Blood, Urine 5+ (Neg); Glucose Qualitative, Urine Neg (Neg); Ketones, Urine 1+ (Neg); Leukocyte Esterase, Urine 2+ (Neg); Nitrite, Urine Pos (Neg); Protein, Urine 4+ (Neg); Urobilinogen, Urine 1+ (Normal)
[2024-04-28 05:43] LABS: Bilirubin, Urine 1+ (Neg); Color, Urine Brown (P-Yellow)
[2024-04-28 05:44] LABS: Appearance, Urine Cloudy (Clear)
[2024-04-28 05:47] LABS: Amorphous Heavy (0-Heavy); Bacteria Many /hpf; Squamous Epithelial Cells Many /hpf (Few)
[2024-04-28 05:48] LABS: Calcium Oxalate Crystals Rare /hpf; Granular Casts 0-2 /lpf (0)
[2024-04-28 06:15] LABS: SARS-Cov-2 (COVID-19) PCR, MMC POSITIVE (NEGATIVE)
[2024-04-28 06:16] LABS: PO2 Arterial 115 mmHg (80-100); pH Blood Arterial 7.33 (7.35-7.45)
[2024-04-28 06:19] LABS: Chloride (POC) 108 mmol/L (98-108); Creatinine (POC) 3.2 mg/dL (0.6-1.0); Glucose (ISTAT POC) 153 mg/dL (70-99); Hemoglobin (POC) 12.2 g/dL (12.0-16.0); Potassium (POC) 3.7 mmol/L (3.5-5.5); Sodium (POC) 140 mmol/L (135-148); Total CO2 (POC) 19 mmol/L (21-32)
[2024-04-28] MEDS ORDERED: CALCIUM GLUC IN NACL, ISO-OSM 100 ML IV ONE (06:20)
[2024-04-28 06:24] LABS: Anti-Xa UFH, PHA Monitoring <0.10 IU/mL
[2024-04-28] MEDS ORDERED: FentaNYL Citrate 50 MCG/ML 2 ML Injection IV ONE ×2 (06:25→07:35)
[2024-04-28] MEDS ORDERED: Heparin Sodium,Porcine/0.5 NS 500 ML IV SCH (06:35)
[2024-04-28] MEDS ORDERED: Heparin Sodium 5000 Units/ML 1ML MDV IV ONE (06:35)
[2024-04-28] MEDS ORDERED: Aspirin 325 MG Tab PO ONE (06:55)
[2024-04-28] MEDS ORDERED: Dexamethasone Sod Phos 10 MG/ML 1ML VIAL IV ONE (07:35)
[2024-04-28] MEDS ORDERED: HYDROmorphone HCl/Pf 1MG SYR IV ONE (08:40)
[2024-04-28 10:30] VITALS: BP 145/90
== END 2024-04-28 10:46 | disposition short-term general hospital (02) ==
LOC: ER 03:34
PROVIDERS: Student in an Organized Health Care Education/Training Program
DX: A41.89 Other specified sepsis (principal); U07.1 COVID-19; R65.20 Severe sepsis without septic shock; N17.9 Acute kidney failure, unspecified; I70.90 Unspecified atherosclerosis; J18.9 Pneumonia, unspecified organism; N39.0 Urinary tract infection, site not specified; E87.5 Hyperkalemia; E83.51 Hypocalcemia; E87.20 Acidosis, unspecified; F43.10 Post-traumatic stress disorder, unspecified; F17.210 Nicotine dependence, cigarettes, uncomplicated; Z79.899 Other long term (current) drug therapy; Z88.8 Allergy status to other drugs, medicaments and biological substances
CPT/HCPCS: 0241U; 36415; 36600; 51702; 70450; 71045; 73706; 74177; 80047; 80053; 81001; 82010; 82330; 82803; 83605; 83690; 83735; 85014; 85025; 85520; 85610; 85730; 87040; 87086; 93005; 93010; 94644; 94664; 96361; 96365-59; 96375-59; 96376-59; 99285-25; A9270; J0612; J1100; J1170; J1644; J1815; J2270; J2543; J3010; J7030; J7060; J7799; Q9967

== ENCOUNTER 2024-06-17 16:48 | Emergency (ER) | payer OTHER ==
[~2024-06-17] VITALS: Ht 170.2 cm; Wt 83.9 kg
[2024-06-17 18:53] LABS: BASOPHILS ABSOLUTE AUTO 0.06 K/mm3 (0.00-0.23); BASOPHILS PERCENT AUTO 1 % (0-2); EOSINOPHILS ABSOLUTE AUTO 0.29 K/mm3 (0.00-0.68); EOSINOPHILS PERCENT AUTO 4 % (0-6); Hematocrit 22.3 % (33.0-51.0); IMMATURE GRAN ABSOLUTE AUTO 0.05 K/mm3 (0.00-0.10); IMMATURE GRAN PERCENT AUTO 1 % (0-1); LYMPHOCYTES ABSOLUTE AUTO 2.16 K/mm3 (0.84-5.20); LYMPHOCYTES PERCENT AUTO 31 % (21-46); MONOCYTES ABSOLUTE AUTO 0.96 K/mm3 (0.16-1.47); MONOCYTES PERCENT AUTO 14 % (4-13); Mean Corpuscular HGB 28.6 pg (26.0-34.0); Mean Corpuscular HGB Conc 31.4 g/dL (31.5-36.5); Mean Corpuscular Volume 91 fL (80-100); Mean Platelet Volume 8.7 fL (9.1-12.4); NEUTROPHILS ABSOLUTE AUTO 3.54 K/mm3 (1.96-9.15); NEUTROPHILS PERCENT AUTO 50 % (41-73); Platelet Count 310 K/mm3 (150-400); RDW Coefficient Variation 14.3 % (11.7-14.2); Red Blood Cell Count 2.45 M/mm3 (3.80-5.20); White Blood Cell Count 7.06 K/mm3 (4.00-11.30)
[2024-06-17 19:05] LABS: Albumin/Globulin Ratio 0.4 (0.8-1.8); Bilirubin, Total 0.4 mg/dL (0.1-1.0); Bun/Creatinine Ratio 9.9 (12.0-20.0); Calcium, Blood 6.3 mg/dL (8.5-10.1); Creatinine, Blood 2.32 mg/dL (0.40-1.00); Globulin, Blood 4.6 g/dL (2.2-4.0); Potassium, Blood 3.3 mmol/L (3.5-5.5); Total Protein, Blood 6.6 g/dL (6.4-8.2)
[2024-06-17] MEDS ORDERED: [UNRECOGNIZED DRUG - OTHER] IV SCH (19:20)
[2024-06-17] MEDS ORDERED: MAGNESIUM SUL IV SCH (19:20)
[2024-06-17 19:37] LABS: International Normalized Ratio 1.23
[2024-06-17 20:33] LABS: Source, Urine Clean Catch
[2024-06-17 20:37] LABS: Bilirubin, Urine Neg (Neg); Blood, Urine 1+ (Neg); Glucose Qualitative, Urine Neg (Neg); Ketones, Urine Neg (Neg); Leukocyte Esterase, Urine 3+ (Neg); Nitrite, Urine Neg (Neg); Protein, Urine 1+ (Neg); Urobilinogen, Urine NORM (Normal)
[2024-06-17 20:40] LABS: Appearance, Urine Hazy (Clear); Color, Urine Yellow (P-Yellow)
[2024-06-17 20:44] LABS: Amorphous Mod (0-Heavy); Bacteria Few /hpf; Squamous Epithelial Cells Rare /hpf (Few); Transitional Epithelial Cells Few /hpf (0-Rare); White Blood Cells, Urine 25-50 /hpf (0-5)
[2024-06-17] MEDS ORDERED: CALCIUM GLUC IN NACL, ISO-OSM 100 ML IV ONE (21:50)
[2024-06-17 22:16] LABS: Hematocrit 19.6 % (33.0-51.0); Hemoglobin 6.3 g/dL (11.5-16.0); Mean Corpuscular HGB 29.3 pg (26.0-34.0); Mean Corpuscular HGB Conc 32.1 g/dL (31.5-36.5); Mean Corpuscular Volume 91 fL (80-100); Mean Platelet Volume 8.5 fL (9.1-12.4); Platelet Count 278 K/mm3 (150-400); RDW Coefficient Variation 14.3 % (11.7-14.2); RDW Standard Deviation 47.8 fL (35.1-46.3); Red Blood Cell Count 2.15 M/mm3 (3.80-5.20); White Blood Cell Count 6.23 K/mm3 (4.00-11.30)
[2024-06-17] MEDS ORDERED: NS 1,000 ML IV SCH (23:35)
[2024-06-18] MEDS ORDERED: Cephalexin Monohydrate 500 MG Cap PO ONE (00:15)
[2024-06-18] MEDS ORDERED: Promethazine HCl 25 MG Tab PO ONE (00:50)
[2024-06-18] MEDS ORDERED: OxyCODONE HCL 5 MG TAB PO ONE (00:50)
[2024-06-18 04:40] VITALS: BP 105/53
== END 2024-06-18 04:54 | disposition home or self-care (01) ==
LOC: ER 16:48
PROVIDERS: Emergency Medicine; Student in an Organized Health Care Education/Training Program
DX: E83.51 Hypocalcemia (principal); E83.42 Hypomagnesemia; D64.9 Anemia, unspecified; F17.210 Nicotine dependence, cigarettes, uncomplicated; Z88.8 Allergy status to other drugs, medicaments and biological substances; Z88.1 Allergy status to other antibiotic agents; Z79.899 Other long term (current) drug therapy
CPT/HCPCS: 36430; 80053; 81001; 82330; 83690; 83735; 83970; 84100; 85025; 85027; 85610; 86850; 86900; 86901; 86923; 93005; 93010; 96365; 96366; 96375; 99284-25; A9270; J0612; J3475; J7030; P9016

== ENCOUNTER 2024-06-25 02:29 | Day surgery (SDC) | payer OTHER | END 2024-06-25 23:00 | disposition home or self-care (01) | LOC: WOUND 02:29 | DX: T81.31XD Disruption of external operation (surgical) wound, not elsewhere classified, subsequent encounter (principal); S91.002D Unspecified open wound, left ankle, subsequent encounter; T79.A0XD Compartment syndrome, unspecified, subsequent encounter; I73.9 Peripheral vascular disease, unspecified; Z87.891 Personal history of nicotine dependence; Z88.3 Allergy status to other anti-infective agents; Z88.8 Allergy status to other drugs, medicaments and biological substances; Z90.710 Acquired absence of both cervix and uterus | CPT/HCPCS: G0463 ==

== ENCOUNTER 2024-06-27 13:38 | Emergency (ER) | payer OTHER ==
[~2024-06-27] VITALS: Ht 170.2 cm; Wt 81.7 kg
[2024-06-27] MEDS ORDERED: NS 1,000 ML IV SCH (13:55)
[2024-06-27] MEDS ORDERED: DiphenhydrAMINE HCl 50 MG/ML 1ML Vial IV ONE (13:55)
[2024-06-27] MEDS ORDERED: Prochlorperazine Edisylate 10 mg Vial IV ONE (13:55)
[2024-06-27] MEDS ORDERED: Ondansetron HCl 2 MG / ML 2ML Vial IV ONE (13:55)
[2024-06-27] MEDS ORDERED: Acetaminophen 500 MG Tab PO ONE (13:55)
[2024-06-27 14:18] LABS: BASOPHILS ABSOLUTE AUTO 0.07 K/mm3 (0.00-0.23); BASOPHILS PERCENT AUTO 0 % (0-2); EOSINOPHILS ABSOLUTE AUTO 0.08 K/mm3 (0.00-0.68); EOSINOPHILS PERCENT AUTO 0 % (0-6); Hematocrit 25.6 % (33.0-51.0); Hemoglobin 8.5 g/dL (11.5-16.0); IMMATURE GRAN ABSOLUTE AUTO 0.12 K/mm3 (0.00-0.10); IMMATURE GRAN PERCENT AUTO 1 % (0-1); LYMPHOCYTES PERCENT AUTO 8 % (21-46); MONOCYTES ABSOLUTE AUTO 0.59 K/mm3 (0.16-1.47); MONOCYTES PERCENT AUTO 3 % (4-13); Mean Corpuscular HGB 29.9 pg (26.0-34.0); Mean Corpuscular HGB Conc 33.2 g/dL (31.5-36.5); Mean Corpuscular Volume 90 fL (80-100); Mean Platelet Volume 9.1 fL (9.1-12.4); NEUTROPHILS ABSOLUTE AUTO 16.19 K/mm3 (1.96-9.15); NEUTROPHILS PERCENT AUTO 87 % (41-73); Platelet Count 400 K/mm3 (150-400); RDW Coefficient Variation 13.5 % (11.7-14.2); RDW Standard Deviation 44.4 fL (35.1-46.3); Red Blood Cell Count 2.84 M/mm3 (3.80-5.20); White Blood Cell Count 18.55 K/mm3 (4.00-11.30)
[2024-06-27 14:43] LABS: Albumin/Globulin Ratio 0.4 (0.8-1.8); Bilirubin, Total 0.4 mg/dL (0.1-1.0); Bun/Creatinine Ratio 10.1 (12.0-20.0); Calcium, Blood 7.1 mg/dL (8.5-10.1); Creatinine, Blood 1.68 mg/dL (0.40-1.00); Globulin, Blood 5.1 g/dL (2.2-4.0); Potassium, Blood 3.3 mmol/L (3.5-5.5); Total Protein, Blood 7.1 g/dL (6.4-8.2)
[2024-06-27 15:06] VITALS: BP 104/56
[2024-06-27] MEDS ORDERED: GABA300 PO (15:12)
[2024-06-27] MEDS ORDERED: OMEP20ER PO (15:12)
[2024-06-27] MEDS ORDERED: HYDMOR4 PO (15:13)
[2024-06-27] MEDS ORDERED: BISA10S PR (15:13)
[2024-06-27] MEDS ORDERED: ACET500 PO ×2 (15:14→19:17)
[2024-06-27] MEDS ORDERED: Metoclopramide HCl 5MG / ML 2ML Vial IV ONE (15:15)
[2024-06-27] MEDS ORDERED: OXYC10ER PO (15:22)
[2024-06-27] MEDS ORDERED: POTA10T PO ×2 (15:22→19:16)
[2024-06-27] MEDS ORDERED: PROM25 PO (15:23)
[2024-06-27] MEDS ORDERED: TORSE20 PO (15:24)
[2024-06-27] MEDS ORDERED: VITAMIN D5000 UNIT PO (15:24)
[2024-06-27] MEDS ORDERED: ERGO50000 PO (15:24)
[2024-06-27 15:47] LABS: Magnesium, Blood 1.1 mg/dL (1.6-2.4)
[2024-06-27] MEDS ORDERED: Magnesium Sulf 2 GM/Water 50ML 50 ML IV ONE (15:50)
[2024-06-27] MEDS ORDERED: Potassium Chloride 20 MEQ TabCR PO ONE (16:35)
[2024-06-27 17:00] LABS: Influenza A, PCR NEGATIVE (NEGATIVE); Influenza B, PCR NEGATIVE (NEGATIVE); Resp Syncytial Virus, PCR NEGATIVE (NEGATIVE); SARS-Cov-2 (COVID-19) PCR, MMC NEGATIVE (NEGATIVE)
[2024-06-27] MEDS ORDERED: Calcium Carbonate 1,250 MG TABLET PO ONE ×2 (17:30→17:35)
[2024-06-27] MEDS ORDERED: CALCIUM CIT 311 EAC7 PO (19:16)
[2024-06-27] MEDS ORDERED: MAGNESIUM250 M1 PO (19:16)
== END 2024-06-27 19:57 | disposition home or self-care (01) ==
LOC: ER 13:38
PROVIDERS: Emergency Medicine; Physician Assistant
DX: K52.9 Noninfective gastroenteritis and colitis, unspecified (principal); E83.42 Hypomagnesemia; E87.6 Hypokalemia; E83.51 Hypocalcemia; F17.210 Nicotine dependence, cigarettes, uncomplicated; Z88.3 Allergy status to other anti-infective agents; Z88.8 Allergy status to other drugs, medicaments and biological substances; Z79.899 Other long term (current) drug therapy; Z98.890 Other specified postprocedural states
CPT/HCPCS: 0241U; 36415; 74177; 80053; 82330; 83605; 83690; 83735; 83970; 85025; 93005; 93010; 96365-59; 96375; 99284-25; A9270; J0780; J1200; J2765; J3475; J7030; Q9967

== ENCOUNTER 2024-06-30 23:12 | Inpatient (IN) | payer OTHER ==
[~2024-06-30] VITALS: Ht 170.2 cm; Wt 68.0 kg
[~2024-06-30 23:12] MED LIST changes: +ACET500 PO; +BISA10S PR; +CALCIUM CIT 311 EAC7 PO; +ERGO50000 PO; +HYDMOR4 PO; +MAGNESIUM250 M1 PO; +OMEP20ER PO; +OXYC10ER PO; +POTA10T PO; +TORSE20 PO; +VITAMIN D5000 UNIT PO
[2024-07-01 00:15] LABS: BASOPHILS ABSOLUTE AUTO 0.06 K/mm3 (0.00-0.23); BASOPHILS PERCENT AUTO 1 % (0-2); EOSINOPHILS ABSOLUTE AUTO 0.25 K/mm3 (0.00-0.68); EOSINOPHILS PERCENT AUTO 3 % (0-6); Hematocrit 21.2 % (33.0-51.0); Hemoglobin 6.8 g/dL (11.5-16.0); IMMATURE GRAN ABSOLUTE AUTO 0.03 K/mm3 (0.00-0.10); IMMATURE GRAN PERCENT AUTO 0 % (0-1); LYMPHOCYTES ABSOLUTE AUTO 2.17 K/mm3 (0.84-5.20); LYMPHOCYTES PERCENT AUTO 26 % (21-46); MONOCYTES ABSOLUTE AUTO 0.71 K/mm3 (0.16-1.47); MONOCYTES PERCENT AUTO 9 % (4-13); Mean Corpuscular HGB 28.7 pg (26.0-34.0); Mean Corpuscular HGB Conc 32.1 g/dL (31.5-36.5); Mean Corpuscular Volume 90 fL (80-100); Mean Platelet Volume 8.7 fL (9.1-12.4); NEUTROPHILS ABSOLUTE AUTO 4.99 K/mm3 (1.96-9.15); NEUTROPHILS PERCENT AUTO 61 % (41-73); Platelet Count 369 K/mm3 (150-400); RDW Coefficient Variation 13.6 % (11.7-14.2); RDW Standard Deviation 44.7 fL (35.1-46.3); Red Blood Cell Count 2.37 M/mm3 (3.80-5.20); White Blood Cell Count 8.21 K/mm3 (4.00-11.30)
[2024-07-01 00:39] LABS: Albumin, Blood 2.2 g/dL (3.4-5.0); Albumin/Globulin Ratio 0.4 (0.8-1.8); Bilirubin, Total 0.4 mg/dL (0.1-1.0); Bun/Creatinine Ratio 7.8 (12.0-20.0); Calcium, Blood 8.5 mg/dL (8.5-10.1); Creatinine, Blood 1.29 mg/dL (0.40-1.00); Total Protein, Blood 7.2 g/dL (6.4-8.2)
[2024-07-01] MEDS ORDERED: Potassium Acetate 20 MEQ in NS 100 ML IV SCH (01:30)
[2024-07-01] MEDS ORDERED: Clindamycin 600mg in D5W 50 ML IV ONE (01:30)
[2024-07-01 01:47] LABS: Magnesium, Blood 1.4 mg/dL (1.6-2.4)
[2024-07-01] MEDS ORDERED: Potassium Chl 20MEQ/Water100ML 100 ML IV SCH ×2 (01:50→12:15)
[2024-07-01] MEDS ORDERED: NS 1,000 ML IV ONE (02:46)
[2024-07-01 02:56] LABS: Source, Urine Clean Catch
[2024-07-01 03:11] LABS: Bilirubin, Urine Neg (Neg); Blood, Urine Neg (Neg); Glucose Qualitative, Urine Neg (Neg); Ketones, Urine Neg (Neg); Leukocyte Esterase, Urine 3+ (Neg); Nitrite, Urine Neg (Neg); Protein, Urine Neg (Neg); Urobilinogen, Urine NORM (Normal)
[2024-07-01] MEDS ORDERED: NS 1,000 ML IV SCH (03:20)
[2024-07-01 03:28] LABS: Appearance, Urine Hazy (Clear); Bacteria Mod /hpf; Color, Urine Yellow (P-Yellow); Red Blood Cells, Urine Not Seen /hpf (0-2); Squamous Epithelial Cells Few /hpf (Few); White Blood Cells, Urine TNTC /hpf (0-5); Yeast/Fungi Urine Few /hpf
[2024-07-01] MEDS ORDERED: Magnesium Sulf 2 GM/Water 50ML 50 ML IV ONE (05:01)
[2024-07-01] MEDS ORDERED: Acetaminophen 325 MG TABLET PO PRN ×2 (05:25→07:30)
[2024-07-01] MEDS ORDERED: Vancomycin HCL 1,750 MG in NS 500 ML IV ONE (06:00)
[2024-07-01] MEDS ORDERED: Piperacillin/Tazobactam Sod 3.375 GM in NS 100 ML IV SCH (06:00)
[2024-07-01] MEDS ORDERED: Potassium Chloride 10 Meq Tablet SA PO ONE (06:00)
[2024-07-01] MEDS ORDERED: Lactated Ringer's 1,000 ML IV SCH ×2 (06:00→12:10)
[2024-07-01] MEDS ORDERED: HYDROcodone 10-APAP 325 TAB PO PRN (07:30)
[2024-07-01] MEDS ORDERED: Phenazopyridine HCl 100 MG Tab PO SCH (09:00)
[2024-07-01 09:45] VITALS: BP 84/44
[2024-07-01] MEDS ORDERED: Ondansetron 4 MG TAB PO PRN (13:15)
[2024-07-01] MEDS ORDERED: HYDROmorphone HCl 4 MG Tab PO PRN (13:55)
[2024-07-01] MEDS ORDERED: CeFAZolin Sodium 2,000 MG in NS 100 ML IV SCH (16:00)
[2024-07-01 16:03] VITALS: BP 94/51
--- NOTE | 2024-07-01 17:26 | NUR ---
SHIFT SUMMARY 4635 PT TO RM 310 VIA ALINA FROM ER. PT ADMITTED FOR SEPSIS R/T UTI AND L LEG WOUND INFECTION. IV ABX INFUSING TO RM. RECEIVED REPORT FROM MIR SCHWAB. PT WITH HX OF COMPARTMENT SYNDROME REQUIRING FASCIOTOMY AND NOW WITH INFECTION IN WOUND. PT TO CONTINUE TO RECEIVE IV ABX. DR MCKEE IN TO SEE PT AND DISCUSS PLAN OF CARE. NEW ORDERS PLACED. PT UP INDEPENDENTLY TO BSC. PT ALSO ADMITTED FOR UTI RECEIVING IVF'S. PT DECLINED ANY MORE PYRIDIUM, REPORTING BURNING NOW GONE. IV KCL NEARING COMPLETION. ORTHO CONSULT CALLED TO DR CASTANEDA THIS AM, BUT HAS NOT SEEN PT OF YET. REQUESTING NEW DRSG'S TO LLE WOUNDS. DENIES FURTHER NEEDS AT THIS TIME. CALL LT IN REACH.
[2024-07-01 19:31] VITALS: BP 95/50
[2024-07-01] MEDS ORDERED: Metoclopramide HCl 5MG / ML 2ML Vial IV PRN (19:35)
[2024-07-01] MEDS ORDERED: Gabapentin 300 MG Cap PO SCH (21:00)
[2024-07-02 03:27] VITALS: BP 94/48
--- NOTE | 2024-07-02 06:12 | NUR ---
Shift Summary Dr. Castrejon came to this this pt tonight to assess her L leg. She said the wound is looking good and put a light netting dressing on per pt request. Pt c/o 7/10 leg pain, medicated per emar. She was experiencing nausea, Zofran was ordered which she has an allergy. Called the hospitalist who D/C Zofran and switch to IV Regalin which managed the nausea well. LLE has red patches and the fasciotomy incision is C/D/I, sutures in place. Pt slept well t/o most of the night. Rcving IV ABX and IVF.
[2024-07-02 06:55] LABS: BASOPHILS ABSOLUTE AUTO 0.04 K/mm3 (0.00-0.23); BASOPHILS PERCENT AUTO 1 % (0-2); EOSINOPHILS ABSOLUTE AUTO 0.31 K/mm3 (0.00-0.68); EOSINOPHILS PERCENT AUTO 5 % (0-6); Hematocrit 23.8 % (33.0-51.0); Hemoglobin 7.5 g/dL (11.5-16.0); IMMATURE GRAN ABSOLUTE AUTO 0.06 K/mm3 (0.00-0.10); IMMATURE GRAN PERCENT AUTO 1 % (0-1); LYMPHOCYTES ABSOLUTE AUTO 1.39 K/mm3 (0.84-5.20); LYMPHOCYTES PERCENT AUTO 23 % (21-46); MONOCYTES ABSOLUTE AUTO 0.58 K/mm3 (0.16-1.47); MONOCYTES PERCENT AUTO 10 % (4-13); Mean Corpuscular HGB Conc 31.5 g/dL (31.5-36.5); Mean Corpuscular Volume 92 fL (80-100); Mean Platelet Volume 9.1 fL (9.1-12.4); NEUTROPHILS PERCENT AUTO 60 % (41-73); Platelet Count 283 K/mm3 (150-400); RDW Coefficient Variation 13.9 % (11.7-14.2); Red Blood Cell Count 2.59 M/mm3 (3.80-5.20); White Blood Cell Count 5.98 K/mm3 (4.00-11.30)
[2024-07-02 07:14] LABS: Bun/Creatinine Ratio 8.3 (12.0-20.0); Calcium, Blood 8.3 mg/dL (8.5-10.1); Creatinine, Blood 1.08 mg/dL (0.40-1.00); Potassium, Blood 4.3 mmol/L (3.5-5.5)
[2024-07-02 07:29] VITALS: BP 112/58
[2024-07-02] MEDS ORDERED: Methadone HCL 10 MG TAB PO SCH (09:00)
[2024-07-02] MEDS ORDERED: Torsemide 20 MG TAB PO SCH (09:00)
[2024-07-02 15:05] VITALS: BP 133/65
--- NOTE | 2024-07-02 16:12 | NUR ---
SHIFT SUMMARY PT AWAKE WATCHING TV AT START OF SHIFT. INDEPENDENT TO BSC NEEDED. DR HOWELL IN TO SEE PT AND DISCUSS PLAN OF CARE. PT TO D/C BACK TO TOMORROW FOR CONTINUED IV ABX. PT CAN BE VERY MANIPULATIVE AND VERY DEMANDING. DR HOWELL LEFT INSTRUCTIONS FOR PT TO GET OOB AND UP TO CHAIR FOR ALL MEALS. PT LACKS MOTIVATION TO HELP HERSELF. THERAPY IN TO WORK WITH PT AND GET HER UP TO CHAIR FOR LUNCH. PT BACK TO BED AGAIN AFTER LUNCH. OFFICE COORDINATOR RECEPTIONIST DID GET PT TO TAKE A SHOWER. NO NEEDS AT THIS TIME. CALL LT IN REACH.
--- NOTE | 2024-07-02 18:09 | NUR ---
PT WANTING SHOWER AFTER LUNCH. COLD HEADER OPERATOR ARRANGED TO ASSIST PT IN WRAPPING IV'S AND GETTING SUPPLIES AND SETTING EVERTHING UP FOR PT. PT ASSISTED TO SHOWER IN ROLLING SHOWER CHAIR. WHEN PT WAS PROVIDED 2 WASH CLOTHS, SHE THREW ONE AT THE WALL CURSING. PT REFUSED TO WASH HERSELF, THOUGH ABLE AND REFUSED TO WASH HER HAIR AFTER COLD HEADER OPERATOR PROVIDED SPECIAL SHAMPOO THAT PT REQUESTED. PT LATER COMPLAINED TO FAMILY THAT COLD HEADER OPERATOR WOULD NOT LET HER WASH HER HAIR. PT HAS BEEN VERY DIFFICULT AND DEMANDING. UNABLE TO BE PLEASED. PT ALSO THROWING TRASH AROUND RM AND DEMANDING THAT STAFF CLEAN IT UP SHE STATES THAT SHE IS UNALBE TO. PT IS ABLE TO GET UP TO BSC AND TO CHAIR. TRASH CANS BESIDE BED, BSC AND CHAIR. PT IS ABLE TO PLACE TRASH IN CAN HERSELF.
[2024-07-02 19:38] VITALS: BP 104/62
[2024-07-03 02:11] VITALS: BP 100/56
--- NOTE | 2024-07-03 05:59 | NUR ---
Shift Summary Pt left leg is still very painful, she usually rates it 7/10 pain. It's has red patches all over the leg. Incision and sutures are c/d/i, no drainage. Leg has been elevated on two pillows all shift which provides relief, pt also medicated for pain per EMAR. She is ind. to BSC. Rcving LR @ 100 and IV ABX. No acute events.
[2024-07-03 08:08] VITALS: BP 102/58
[2024-07-03 08:22] LABS: BASOPHILS ABSOLUTE AUTO 0.04 K/mm3 (0.00-0.23); BASOPHILS PERCENT AUTO 1 % (0-2); EOSINOPHILS ABSOLUTE AUTO 0.26 K/mm3 (0.00-0.68); EOSINOPHILS PERCENT AUTO 4 % (0-6); Hematocrit 24.7 % (33.0-51.0); Hemoglobin 7.7 g/dL (11.5-16.0); IMMATURE GRAN ABSOLUTE AUTO 0.07 K/mm3 (0.00-0.10); IMMATURE GRAN PERCENT AUTO 1 % (0-1); LYMPHOCYTES PERCENT AUTO 26 % (21-46); MONOCYTES ABSOLUTE AUTO 0.55 K/mm3 (0.16-1.47); MONOCYTES PERCENT AUTO 9 % (4-13); Mean Corpuscular HGB 29.5 pg (26.0-34.0); Mean Corpuscular HGB Conc 31.2 g/dL (31.5-36.5); Mean Corpuscular Volume 95 fL (80-100); Mean Platelet Volume 8.9 fL (9.1-12.4); NEUTROPHILS ABSOLUTE AUTO 3.85 K/mm3 (1.96-9.15); NEUTROPHILS PERCENT AUTO 60 % (41-73); Platelet Count 306 K/mm3 (150-400); RDW Standard Deviation 48.6 fL (35.1-46.3); Red Blood Cell Count 2.61 M/mm3 (3.80-5.20); White Blood Cell Count 6.47 K/mm3 (4.00-11.30)
[2024-07-03 08:36] LABS: Bun/Creatinine Ratio 6.7 (12.0-20.0); Calcium, Blood 7.9 mg/dL (8.5-10.1); Creatinine, Blood 1.04 mg/dL (0.40-1.00); Potassium, Blood 4.1 mmol/L (3.5-5.5)
[2024-07-03] MEDS ORDERED: Lactobacil 2-S.Thermo-Bifido 1 1 Cap PO SCH (11:00)
[2024-07-03] MEDS ORDERED: AMOCLA875 PO (14:03)
[2024-07-03] MEDS ORDERED: VISBIOME 112.51 EACH PO (14:03)
--- NOTE | 2024-07-03 18:19 | NUR ---
PT DISCHARGED HOME WITH HOME HEALTH, DISCHARGE INSTRUCTIONS DISCUSSED WITH PT. SON CAME TO SURFACING TECHNICIAN PT,
== END 2024-07-03 17:40 | disposition home health service (06) | DRG 862 ==
LOC: ER 23:12 → MEDS 07-01 05:16 → ERHOLD 07-01 05:16 → MEDS 07-01 09:33 → ENPENDDIS 07-03 13:22 → MEDS 07-03 17:40
PROVIDERS: Emergency Medicine; Internal Medicine; ADMIT Internal Medicine
PROC: 30233N1 Transfusion of Nonautologous Red Blood Cells into Peripheral Vein, Percutaneous Approach (ICD-10-PCS; principal; 2024-07-01)
PROC: 3E03329 Introduction of Other Anti-infective into Peripheral Vein, Percutaneous Approach (ICD-10-PCS; 2024-07-01)
DX: T81.41XA Infection following a procedure, superficial incisional surgical site, initial encounter (principal); A41.9 Sepsis, unspecified organism; N39.0 Urinary tract infection, site not specified; L03.116 Cellulitis of left lower limb; D64.9 Anemia, unspecified; E87.6 Hypokalemia; E83.42 Hypomagnesemia; F43.10 Post-traumatic stress disorder, unspecified; M21.372 Foot drop, left foot; F41.9 Anxiety disorder, unspecified; Z90.49 Acquired absence of other specified parts of digestive tract; Z90.710 Acquired absence of both cervix and uterus; Z98.890 Other specified postprocedural states; F17.210 Nicotine dependence, cigarettes, uncomplicated; Z87.19 Personal history of other diseases of the digestive system; Z88.8 Allergy status to other drugs, medicaments and biological substances; Z79.891 Long term (current) use of opiate analgesic; Z79.899 Other long term (current) drug therapy
CPT/HCPCS: 36415; 36430; 73700; 74177; 80048; 80053; 81001; 82947; 83605; 83735; 85025; 86850; 86900; 86901; 86923; 87040; 87086; 93005; 93010; 96365-59; 96366; 96368; 96376; 97110; 97112; 97161; 97530; 99285-25; A9270; J0690; J2543; J2765; J3370; J3475; J3480; J7030; J7040; J7120; P9016; Q9967

== ENCOUNTER 2024-07-11 03:38 | Day surgery (SDC) | payer OTHER ==
[~2024-07-11 03:38] MED LIST changes: +AMOCLA875 PO; +VISBIOME 112.51 EACH PO
== END 2024-07-11 23:00 | disposition home or self-care (01) ==
LOC: WOUND 03:38
DX: T81.31XD Disruption of external operation (surgical) wound, not elsewhere classified, subsequent encounter (principal); I87.2 Venous insufficiency (chronic) (peripheral); I73.9 Peripheral vascular disease, unspecified
CPT/HCPCS: G0463

== ENCOUNTER 2024-07-16 02:35 | Day surgery (SDC) | payer OTHER | END 2024-07-16 23:00 | disposition home or self-care (01) | LOC: WOUND 02:35 | DX: T81.31XD Disruption of external operation (surgical) wound, not elsewhere classified, subsequent encounter (principal); I87.2 Venous insufficiency (chronic) (peripheral); I73.9 Peripheral vascular disease, unspecified | CPT/HCPCS: G0463 ==

== ENCOUNTER 2024-07-25 03:09 | Day surgery (SDC) | payer OTHER | END 2024-07-25 23:24 | disposition home or self-care (01) | LOC: WOUND | DX: T81.31XA Disruption of external operation (surgical) wound, not elsewhere classified, initial encounter (principal); I87.2 Venous insufficiency (chronic) (peripheral); I73.9 Peripheral vascular disease, unspecified; T79.A0XD Compartment syndrome, unspecified, subsequent encounter ==

== ENCOUNTER 2024-08-14 01:16 | Day surgery (SDC) | payer OTHER | END 2024-08-14 23:00 | disposition home or self-care (01) | LOC: WOUND 01:16 | DX: T81.31XA Disruption of external operation (surgical) wound, not elsewhere classified, initial encounter (principal); I87.2 Venous insufficiency (chronic) (peripheral); I73.9 Peripheral vascular disease, unspecified; T79.A0XA Compartment syndrome, unspecified, initial encounter; Z48.89 Encounter for other specified surgical aftercare; Z98.890 Other specified postprocedural states | CPT/HCPCS: 36415; 80053; 83735; 85025; G0463 ==

== ENCOUNTER 2024-08-21 03:40 | Day surgery (SDC) | payer OTHER | END 2024-08-21 23:51 | disposition home or self-care (01) | LOC: WOUND 03:40 | DX: T81.31XA Disruption of external operation (surgical) wound, not elsewhere classified, initial encounter (principal); I87.2 Venous insufficiency (chronic) (peripheral); I73.9 Peripheral vascular disease, unspecified; T79.A0XA Compartment syndrome, unspecified, initial encounter | CPT/HCPCS: G0463 ==

== ENCOUNTER 2024-12-12 02:24 | Emergency (ER) | payer OTHER ==
[~2024-12-12] VITALS: Ht 170.2 cm; Wt 73.9 kg
[2024-12-12] MEDS ORDERED: PREG50 PO (03:09)
[2024-12-12 03:21] LABS: Source, Urine Clean Catch
[2024-12-12] MEDS ORDERED: NS 1,000 ML IV SCH (03:25)
[2024-12-12] MEDS ORDERED: Ketorolac Tromethamine 30mg Vial IV ONE (03:25)
[2024-12-12 03:28] LABS: Appearance, Urine Hazy (Clear); Bilirubin, Urine Neg (Neg); Blood, Urine 1+ (Neg); Color, Urine Yellow (P-Yellow); Glucose Qualitative, Urine Neg (Neg); Ketones, Urine Neg (Neg); Leukocyte Esterase, Urine 3+ (Neg); Nitrite, Urine Neg (Neg); Protein, Urine 1+ (Neg); Specific Gravity, Urine 1.015 (1.003-1.022); Urobilinogen, Urine NORM (Normal)
[2024-12-12 03:31] LABS: BASOPHILS ABSOLUTE AUTO 0.04 K/mm3 (0.00-0.23); BASOPHILS PERCENT AUTO 1 % (0-2); EOSINOPHILS PERCENT AUTO 4 % (0-6); Hematocrit 31.2 % (33.0-51.0); Hemoglobin 10.4 g/dL (11.5-16.0); IMMATURE GRAN ABSOLUTE AUTO 0.01 K/mm3 (0.00-0.10); IMMATURE GRAN PERCENT AUTO 0 % (0-1); LYMPHOCYTES ABSOLUTE AUTO 1.24 K/mm3 (0.84-5.20); LYMPHOCYTES PERCENT AUTO 26 % (21-46); MONOCYTES ABSOLUTE AUTO 0.45 K/mm3 (0.16-1.47); MONOCYTES PERCENT AUTO 10 % (4-13); Mean Corpuscular HGB Conc 33.3 g/dL (31.5-36.5); Mean Corpuscular Volume 84 fL (80-100); Mean Platelet Volume 9.9 fL (9.1-12.4); NEUTROPHILS ABSOLUTE AUTO 2.82 K/mm3 (1.96-9.15); NEUTROPHILS PERCENT AUTO 59 % (41-73); Platelet Count 201 K/mm3 (150-400); RDW Coefficient Variation 12.6 % (11.7-14.2); RDW Standard Deviation 37.9 fL (35.1-46.3); Red Blood Cell Count 3.71 M/mm3 (3.80-5.20); White Blood Cell Count 4.76 K/mm3 (4.00-11.30)
[2024-12-12 03:43] LABS: Bacteria Many /hpf; Red Blood Cells, Urine 0-2 /hpf (0-2); Squamous Epithelial Cells Many /hpf (Few)
[2024-12-12 03:53] LABS: Albumin, Blood 3.3 g/dL (3.4-5.0); Bilirubin, Total 0.5 mg/dL (0.1-1.0); Bun/Creatinine Ratio 12.5 (12.0-20.0); Calcium, Blood 8.5 mg/dL (8.5-10.1); Creatinine, Blood 1.12 mg/dL (0.40-1.00); Globulin, Blood 3.4 g/dL (2.2-4.0); Potassium, Blood 3.6 mmol/L (3.5-5.5); Total Protein, Blood 6.7 g/dL (6.4-8.2)
[2024-12-12] MEDS ORDERED: FentaNYL Citrate 50 MCG/ML 2 ML Injection IV PRN (04:55)
[2024-12-12 05:48] LABS: Source, Urine Clean Catch
[2024-12-12 05:53] LABS: Appearance, Urine Clear (Clear); Bilirubin, Urine Neg (Neg); Blood, Urine Neg (Neg); Glucose Qualitative, Urine Neg (Neg); Ketones, Urine Neg (Neg); Leukocyte Esterase, Urine Neg (Neg); Nitrite, Urine Neg (Neg); Protein, Urine Neg (Neg); Urobilinogen, Urine NORM (Normal)
[2024-12-12 05:56] LABS: Color, Urine Pale Yellow (P-Yellow)
[2024-12-12 06:00] VITALS: BP 108/62
== END 2024-12-12 06:20 | disposition home or self-care (01) ==
LOC: ER 02:24
PROVIDERS: Emergency Medicine
DX: R10.31 Right lower quadrant pain (principal); K92.1 Melena; Z59.89 Other problems related to housing and economic circumstances; F17.210 Nicotine dependence, cigarettes, uncomplicated; Z79.891 Long term (current) use of opiate analgesic; Z79.1 Long term (current) use of non-steroidal anti-inflammatories (NSAID); Z79.83 Long term (current) use of bisphosphonates; Z79.899 Other long term (current) drug therapy; Z79.811 Long term (current) use of aromatase inhibitors; Z88.8 Allergy status to other drugs, medicaments and biological substances; Z88.5 Allergy status to narcotic agent; Z88.2 Allergy status to sulfonamides
CPT/HCPCS: 74177; 80053; 81001; 81003; 85025; 86850; 86900; 86901; 87086; 96374; 96375; 99284-25; J1885; J3010; J7030; Q9967

== ENCOUNTER 2025-03-05 07:01 | Day surgery (SDC) | payer OTHER ==
[~2025-03-05] VITALS: Ht 170.2 cm; Wt 76.7 kg
[~2025-03-05 07:01] MED LIST changes: +PREG50 PO
[2025-03-05] MEDS ORDERED: propofoL 50 ML IV ONE ×2 (07:36→10:18)
[2025-03-05] MEDS ORDERED: Lactated Ringer's 1,000 ML IV ONE ×3 (07:36→10:11)
[2025-03-05] MEDS ORDERED: Metoclopramide HCl 5MG / ML 2ML Vial ONE (08:36)
--- NOTE | 2025-03-05 09:10 | NUR ---
03/05/25 0910 Jorge Brannon CASE DELAYED D/T CHANGING PROCEDURE FROM NURSE SEDATION TO MAC. PT'S LAST COLONOSCOPY IN 2022 WAS MAC, PT CURRENTLY ON METHADONE, [place]X OF DRUG ABUSE, ALLERGY TO ONDANSETRON, AND CURRENT BP 101/60 AND 98/55. DR. JO, THIS RN, AND CHARGE NURSE ROSEANNA Hogue, RN AGREED PT WOULD BE MORE APPROPRIATE A MAC CASE FOR PATIENT SAFETY.
[2025-03-05] MEDS ORDERED: propofoL 0 ML IV ONE (09:18)
[2025-03-05] MEDS ORDERED: Benzocaine Oral Spray 0.5ML UD ONE (09:18)
[2025-03-05] MEDS ORDERED: Lidocaine 2% 5 ML SDV ONE (09:19)
[2025-03-05 11:16] VITALS: BP 99/62
== END 2025-03-05 11:14 | disposition home or self-care (01) ==
LOC: ORSCSDS 07:01
PROVIDERS: Specialist
PROC: 0DBB8ZX Excision of Ileum, Via Natural or Artificial Opening Endoscopic, Diagnostic (ICD-10-PCS; principal; 2025-03-05 08:30)
PROC: 0DB78ZX Excision of Stomach, Pylorus, Via Natural or Artificial Opening Endoscopic, Diagnostic (ICD-10-PCS; principal; 2025-03-05 08:30)
PROC: 0DB98ZX Excision of Duodenum, Via Natural or Artificial Opening Endoscopic, Diagnostic (ICD-10-PCS; principal; 2025-03-05 08:30)
DX: R19.4 Change in bowel habit (principal); R19.5 Other fecal abnormalities; R93.3 Abnormal findings on diagnostic imaging of other parts of digestive tract; R11.2 Nausea with vomiting, unspecified; K29.40 Chronic atrophic gastritis without bleeding; K44.9 Diaphragmatic hernia without obstruction or gangrene; K64.8 Other hemorrhoids; Z79.899 Other long term (current) drug therapy; F17.290 Nicotine dependence, other tobacco product, uncomplicated
CPT/HCPCS: 88305; 88342; A9270; J2704; J2765; J7120

== ENCOUNTER → 2025-03-28 | Outpatient (CLI) | payer OTHER | LOC: LAB 17:48 → LAB SHORT 17:48 | DX: R30.0 Dysuria (principal) | CPT/HCPCS: 87086 ==

== ENCOUNTER 2025-04-27 15:04 | Inpatient (IN) | payer OTHER ==
[~2025-04-27] VITALS: Ht 170.2 cm; Wt 77.1 kg
[2025-04-27] MEDS ORDERED: HYDR1TAB94 PO (15:43)
[2025-04-27] MEDS ORDERED: Prochlorperazine Edisylate 10 mg Vial IV ONE (16:15)
[2025-04-27] MEDS ORDERED: NS 1,000 ML IV SCH (16:15)
[2025-04-27 17:52] LABS: BASOPHILS ABSOLUTE AUTO 0.05 K/mm3 (0.00-0.23); BASOPHILS PERCENT AUTO 0 % (0-2); EOSINOPHILS ABSOLUTE AUTO 0.06 K/mm3 (0.00-0.68); EOSINOPHILS PERCENT AUTO 1 % (0-6); Hematocrit 38.4 % (33.0-51.0); Hemoglobin 12.5 g/dL (11.5-16.0); IMMATURE GRAN ABSOLUTE AUTO 0.03 K/mm3 (0.00-0.10); IMMATURE GRAN PERCENT AUTO 0 % (0-1); LYMPHOCYTES ABSOLUTE AUTO 1.31 K/mm3 (0.84-5.20); LYMPHOCYTES PERCENT AUTO 12 % (21-46); MONOCYTES ABSOLUTE AUTO 0.53 K/mm3 (0.16-1.47); MONOCYTES PERCENT AUTO 5 % (4-13); Mean Corpuscular HGB Conc 32.6 g/dL (31.5-36.5); Mean Corpuscular Volume 86 fL (80-100); NEUTROPHILS ABSOLUTE AUTO 9.40 K/mm3 (1.96-9.15); NEUTROPHILS PERCENT AUTO 83 % (41-73); NRBC ABSOLUTE 0.00 K/mm3 (0.00-0.02); NRBC Auto 0.0 /100 WBC (0.0-0.2); Platelet Count 279 K/mm3 (150-400); RDW Coefficient Variation 12.0 % (11.7-14.2); RDW Standard Deviation 37.5 fL (35.1-46.3)
[2025-04-27 18:23] LABS: Alanine Aminotransfer (ALT/SGP 28.0 U/L (12-78); Albumin, Blood 3.8 g/dL (3.4-5.0); Albumin/Globulin Ratio 0.8 (0.8-1.8); Anion Gap 9.0 mmol/L (3-11); Aspartate Aminotrans (AST/SGOT 28.0 U/L (12-37); Bilirubin, Total 0.6 mg/dL (0.1-1.0); Blood Urea Nitrogen 27.0 mg/dL (8-24); CO2, Blood 26.0 mmol/L (21-32); Calcium, Blood 9.2 mg/dL (8.5-10.1); Chloride, Blood 102.0 mmol/L (98-108); Creatinine, Blood 1.36 mg/dL (0.40-1.00); Globulin, Blood 4.5 g/dL (2.2-4.0); Glucose, Blood 128.0 mg/dL (70-99); Potassium, Blood 4.5 mmol/L (3.5-5.5); Sodium, Blood 132.0 mmol/L (136-145); Total Protein, Blood 8.3 g/dL (6.4-8.2)
[2025-04-27 18:36] LABS: Source, Urine Clean Catch
[2025-04-27 18:46] LABS: Color, Urine Yellow (P-Yellow); Glucose Qualitative, Urine Neg (Neg); Ketones, Urine Neg (Neg); Leukocyte Esterase, Urine 1+ (Neg); Protein, Urine 2+ (Neg); Specific Gravity, Urine 1.020 (1.003-1.022); Urobilinogen, Urine NORM (Normal)
[2025-04-27 18:51] LABS: Bilirubin, Urine 1+ (Neg)
[2025-04-27] MEDS ORDERED: Morphine Sulfate 4 MG/1 ML Injection IV ONE (20:10)
[2025-04-27] MEDS ORDERED: Morphine Sulfate 4 MG/1 ML Injection IV PRN (20:50)
[2025-04-27] MEDS ORDERED: Prochlorperazine Edisylate 10 mg Vial IV PRN (20:50)
[2025-04-27 22:17] VITALS: BP 80/48
[2025-04-27 22:48] VITALS: BP 110/60
[2025-04-27] MEDS ORDERED: FentaNYL Citrate 50 MCG/ML 2 ML Injection IV PRN (23:50)
--- NOTE | 2025-04-28 05:00 | NUR ---
SHIFT SUMMARY A/OX4, SBA/IND WITH TRANSFERS. NPO LR INFUSING AT 150. C/O SEVERE PAIN, MEDICATED PER EMAR WITH LITTLE RELIEF. NG WITH NO OUTPUT AFTER INSERTION IN ED, REMOVED FROM NARE AND PT REFUSING TO HAVE ANOTHER NG TUBE PLACED. CHIEF DRAFTER PROVIDER NOTIFIED. WILL CONTINUE TO MONITOR
[2025-04-28 05:22] VITALS: BP 109/64
[2025-04-28] MEDS ORDERED: Pantoprazole Sodium 40 MG Injection IV SCH (06:00)
[2025-04-28 08:05] VITALS: BP 114/66
[2025-04-28 10:46] LABS: Hematocrit 32.6 % (33.0-51.0); Hemoglobin 10.8 g/dL (11.5-16.0); Mean Corpuscular HGB Conc 33.1 g/dL (31.5-36.5); Mean Corpuscular Volume 87 fL (80-100); NRBC ABSOLUTE 0.00 K/mm3 (0.00-0.02); NRBC Auto 0.0 /100 WBC (0.0-0.2); Platelet Count 207 K/mm3 (150-400); RDW Coefficient Variation 12.1 % (11.7-14.2); RDW Standard Deviation 38.4 fL (35.1-46.3)
[2025-04-28 11:08] LABS: C-REACTIVE PROTEIN, EXT RANGE 0.843 mg/dL (0.000-0.300)
[2025-04-28 11:09] LABS: Magnesium, Blood 2.3 mg/dL (1.6-2.4)
[2025-04-28 11:10] LABS: Anion Gap 6.0 mmol/L (3-11); Blood Urea Nitrogen 19.0 mg/dL (8-24); CO2, Blood 27.0 mmol/L (21-32); Calcium, Blood 8.5 mg/dL (8.5-10.1); Chloride, Blood 106.0 mmol/L (98-108); Creatinine, Blood 0.86 mg/dL (0.40-1.00); Glucose, Blood 113.0 mg/dL (70-99); Potassium, Blood 4.0 mmol/L (3.5-5.5); Sodium, Blood 135.0 mmol/L (136-145)
[2025-04-28 11:12] LABS: Ferritin, Serum 158.0 ng/mL (8-252); Total Iron Binding Capacity 224.0 ug/dL (250-450)
[2025-04-28 12:29] LABS: Rubella Antibody, IgG 27.0 IU/mL (15-)
[2025-04-28 15:33] LABS: Campylobacter Sp Not Detected (NOT DETECT); E. Coli O157 Not Detected (NOT DETECT); Enteroaggregative E. coli-EAEC Not Detected (NOT DETECT); Enteropathogenic E. coli-EPEC Not Detected (NOT DETECT); Enterotoxigenic E. coli-ETEC Not Detected (NOT DETECT); Salmonella Sp Not Detected (NOT DETECT); Shiga Toxin-prod E. coli-STEC Not Detected (NOT DETECT); Shigella/Enteroin E. coli-EIEC Not Detected (NOT DETECT); Vibrio Sp Not Detected (NOT DETECT)
[2025-04-28 15:35] VITALS: BP 120/67
--- NOTE | 2025-04-28 18:22 | NUR ---
SHIFT SUMMARY PT A&OX4, VSS, AMB IND, TOLERATING CLEAR LIQUIDS, VOIDING, AND PAIN MANAGED PER EMAR. PT DID C/O NAUSEA THAT WAS MEDICATED PER EMAR, BUT NO VOMITING. CALL LIGHT WITHIN REACH AND PT ABLE TO MAKE NEEDS KNOWN.
[2025-04-28 19:17] VITALS: BP 126/69
[2025-04-29 04:15] VITALS: BP 110/59
--- NOTE | 2025-04-29 05:33 | NUR ---
DC LR FLUIDS LR d/c'd per patient request. Patient tolerating PO liquids all night without complaints of GI upset. Called Dr. Calvin Patel, got T.O. to discontinue LR. Patient will be discharging some time today. Orders updated.
[2025-04-29 05:50] LABS: BASOPHILS ABSOLUTE AUTO 0.03 K/mm3 (0.00-0.23); BASOPHILS PERCENT AUTO 1 % (0-2); EOSINOPHILS ABSOLUTE AUTO 0.08 K/mm3 (0.00-0.68); EOSINOPHILS PERCENT AUTO 2 % (0-6); Hematocrit 29.8 % (33.0-51.0); Hemoglobin 9.7 g/dL (11.5-16.0); IMMATURE GRAN ABSOLUTE AUTO 0.01 K/mm3 (0.00-0.10); IMMATURE GRAN PERCENT AUTO 0 % (0-1); LYMPHOCYTES ABSOLUTE AUTO 1.80 K/mm3 (0.84-5.20); LYMPHOCYTES PERCENT AUTO 34 % (21-46); MONOCYTES ABSOLUTE AUTO 0.52 K/mm3 (0.16-1.47); MONOCYTES PERCENT AUTO 10 % (4-13); Mean Corpuscular HGB Conc 32.6 g/dL (31.5-36.5); Mean Corpuscular Volume 88 fL (80-100); NEUTROPHILS ABSOLUTE AUTO 2.86 K/mm3 (1.96-9.15); NEUTROPHILS PERCENT AUTO 54 % (41-73); NRBC ABSOLUTE 0.00 K/mm3 (0.00-0.02); NRBC Auto 0.0 /100 WBC (0.0-0.2); Platelet Count 212 K/mm3 (150-400); RDW Coefficient Variation 12.1 % (11.7-14.2); RDW Standard Deviation 39.0 fL (35.1-46.3)
[2025-04-29 06:24] LABS: Anion Gap 7.0 mmol/L (3-11); Blood Urea Nitrogen 13.0 mg/dL (8-24); CO2, Blood 27.0 mmol/L (21-32); Calcium, Blood 8.2 mg/dL (8.5-10.1); Chloride, Blood 110.0 mmol/L (98-108); Creatinine, Blood 1.07 mg/dL (0.40-1.00); Glucose, Blood 93.0 mg/dL (70-99); Potassium, Blood 3.5 mmol/L (3.5-5.5); Sodium, Blood 140.0 mmol/L (136-145)
--- NOTE | 2025-04-29 06:26 | NUR ---
Shift Summary AOx4. Ad akhil. Patient has been reporting abdominal pain and at times bilateral feet pain when she requests for fentanly despite resolution of SBO and receiving her lyrica. Pain well managed with fentanyl. Patient is saline locked d/t refusing anymore LR infusion as she is tolerating PO fluids now. Plan to discharge home later today.
[2025-04-29 07:46] VITALS: BP 101/56
[2025-04-29 07:47] VITALS: BP 104/59
[2025-04-29 12:35] LABS: U Amphetamine Screen Not Detected; U Barbituate Screen Not Detected; U Benzodiazapine Screen Not Detected; U Buprenorphine Screen Not Detected; U Cannabinoids Screen DETECTED; U Cocaine Screen Not Detected; U Methadone Screen DETECTED; U Methamphetamine Screen Not Detected; U Opiates Screen Not Detected; U Oxycodone Screen Not Detected; U Phencyclidine Screen Not Detected
[2025-04-29] MEDS ORDERED: PRED20 PO (13:25)
--- NOTE | 2025-04-29 13:49 | NUR ---
PT DISCHARGED HOME AT 1349, PT WAS PROVIDED VERBAL AND WRITTEN DISCHARE INSTRUCIONS AND VERBALIZED AN UNDERSTANDING. PT IS A/OX4, AMBULATING INDEPENDENTLY, VOIDING APPRORIATELY, AND PAIN MANAGED. PT LEFT WITH ALL PERSONAL BELONGINGS.
[2025-04-29 17:33] LABS: HEPATITIS B SURFACE ANTIBODY <3.10 IU/L
[2025-04-29 18:06] LABS: HBV CORE ANTIBODIES,TOTAL Negative (Negative)
[2025-04-29 18:34] LABS: HEPATITIS C AB CIA INTERP Negative (Negative); HEPATITIS C ANTIBODY CIA INDEX 0.02 IV
[2025-04-29 19:23] LABS: HEPATITIS A ANTIBODIES, TOTAL Positive (Negative)
[2025-04-30 02:59] LABS: EBV AB TO EARLY (D) AG IGG 19.5 U/mL (<=8.9); EBV AB TO VIRAL CAPSID AG IGG 397.0 U/mL (<=17.9); EBV AB TO VIRAL CAPSID AG IGM <10.0 U/mL (<=35.9); EBV ANTIBODY TO NUCLEAR AG IGG 573.0 U/mL (<=17.9); VARICELLA-ZOSTER VIRUS AB,IGG 6.12 S/CO (<=0.99)
[2025-04-30 02:59] LABS: MEASLES,RUBEOLA,ANTIBODY IGG >300.0 AU/mL; MUMPS VIRUS ANTIBODY,IGG 182.0 AU/mL
[2025-05-01 14:09] LABS: CALPROTECTIN,FECAL 95 ug/g (<=49)
== END 2025-04-29 13:55 | disposition home or self-care (01) | DRG 389 ==
LOC: ER 15:04 → MEDS 15:05
PROVIDERS: Internal Medicine Gastroenterology; Nurse Practitioner Acute Care; Student in an Organized Health Care Education/Training Program; ADMIT Internal Medicine
PROC: 0D9670Z Drainage of Stomach with Drainage Device, Via Natural or Artificial Opening (ICD-10-PCS; principal; 2025-04-27)
DX: K56.609 Unspecified intestinal obstruction, unspecified as to partial versus complete obstruction (principal); F11.20 Opioid dependence, uncomplicated; N18.30 Chronic kidney disease, stage 3 unspecified; K21.9 Gastro-esophageal reflux disease without esophagitis; F41.9 Anxiety disorder, unspecified; G89.4 Chronic pain syndrome; N18.31 Chronic kidney disease, stage 3a; F43.12 Post-traumatic stress disorder, chronic; K59.00 Constipation, unspecified; K76.0 Fatty (change of) liver, not elsewhere classified; Z98.890 Other specified postprocedural states; Z88.8 Allergy status to other drugs, medicaments and biological substances; Z87.891 Personal history of nicotine dependence; Z90.49 Acquired absence of other specified parts of digestive tract; Z90.710 Acquired absence of both cervix and uterus; Z79.899 Other long term (current) drug therapy
CPT/HCPCS: 36415; 71045; 74177; 80048; 80053; 81001; 82306; 82728; 83540; 83550; 83690; 83735; 83993; 85025; 85027; 86140; 86663; 86664; 86665; 86704; 86708; 86735; 86762; 86765; 86787; 86803; 87086; 87340; 87507; 96361; 96374-59; 96375; 99285-25; A9270; G0378; J0780; J2270; J2470; J3010; J7030; J7120; J7512; Q9967

== ENCOUNTER → 2025-06-10 | Outpatient (CLI) | payer OTHER ==
[~2025-06-10] MED LIST changes: +HYDR1TAB94 PO; +PRED20 PO
== END ==
LOC: LAB SHORT 18:09 → LAB 18:09
DX: R30.0 Dysuria (principal)
CPT/HCPCS: 87086

== ENCOUNTER → 2025-06-13 | Outpatient (CLI) | payer OTHER ==
[2025-06-13 17:17] LABS: Protein, Urine Quantitative 12.3 mg/dL (0.0-11.9)
[2025-06-13 17:25] LABS: Microalbumin, Urine Quant. <5.000 mg/L (0.000-20.000)
== END ==
LOC: LAB 09:30 → LAB SHORT 09:30
PROVIDERS: Internal Medicine Nephrology
DX: N18.30 Chronic kidney disease, stage 3 unspecified (principal); D63.1 Anemia in chronic kidney disease
CPT/HCPCS: 81050; 82043; 82570; 84156

== ENCOUNTER 2025-06-24 01:34 | Day surgery (SDC) | payer OTHER ==
[2025-06-24] VITALS (7 sets, daily range): BP systolic 114–130; BP diastolic 62–73
[2025-06-24] MEDS ORDERED: Infliximab-DYYB 450 MG in NS 250 ML IV SCH (06:00)
[2025-06-24] MEDS ORDERED: INFLECTRA100 MG IV (09:23)
--- NOTE | 2025-06-24 12:01 | NUR ---
PT UP TO BATHROOM AND BACK TO ROOM 6 WITHOUT INCIDENT. FRESH BLANKET GIVEN TO PT. NO OTHER REQUESTS AT THIS TIME.
--- NOTE | 2025-06-24 12:39 | NUR ---
RN CALLED INTO PT'S ROOM AT 0948. PT REPORTED FEELING ITCHY ON HER ARMS AND CHEST. NO HIVES NOTED. PT'S CHEEKS DO LOOK FLUSHED. SUSPECT POSSIBLE REACTION TO HYDROCORTISONE PRE MED PT STATES SHE HAS NEVER HAD ANY ISSUE WITH TYLENOL AND BENADRYL. GAVE PT ADDITIONAL 25MG PO BENADYL. AT 30 MIN, PT'S SYMPTOMS IMPROVED AND INFLECTRA STARTED.
== END 2025-06-24 12:32 | disposition home or self-care (01) ==
LOC: ATC 01:34
DX: K50.10 Crohn's disease of large intestine without complications (principal); Z88.8 Allergy status to other drugs, medicaments and biological substances; Z87.891 Personal history of nicotine dependence
CPT/HCPCS: 96375; 96413; 96415; A9270; J1720; J7050; Q5103

== ENCOUNTER 2025-07-08 01:51 | Day surgery (SDC) | payer OTHER ==
[~2025-07-08] VITALS: Wt 90.4 kg
[~2025-07-08 01:51] MED LIST changes: +INFLECTRA100 MG IV
[2025-07-08] MEDS ORDERED: Infliximab-DYYB 450 MG in NS 250 ML IV SCH (06:00)
[2025-07-08 15:26] VITALS: BP 123/60
== END 2025-07-08 18:06 | disposition home or self-care (01) ==
LOC: ATC 01:51
DX: K50.00 Crohn's disease of small intestine without complications (principal); F43.10 Post-traumatic stress disorder, unspecified; F41.1 Generalized anxiety disorder; Z79.899 Other long term (current) drug therapy; Z88.8 Allergy status to other drugs, medicaments and biological substances; Z87.891 Personal history of nicotine dependence; Z90.49 Acquired absence of other specified parts of digestive tract
CPT/HCPCS: 96413; 96415; A9270; J7050; Q5103

== ENCOUNTER 2025-08-05 01:21 | Day surgery (SDC) | payer OTHER ==
[~2025-08-05] VITALS: Wt 92.9 kg
[2025-08-05 08:05] VITALS: BP 106/50
[2025-08-05] MEDS ORDERED: Infliximab-DYYB 450 MG in NS 250 ML IV SCH (09:00)
[2025-08-05 09:05] VITALS: BP 99/57
[2025-08-05 09:21] VITALS: BP 97/55
[2025-08-05 09:52] VITALS: BP 95/63
== END 2025-08-05 10:42 | disposition home or self-care (01) ==
LOC: ATC 01:21
DX: K50.919 Crohn's disease, unspecified, with unspecified complications (principal); F41.1 Generalized anxiety disorder; F32.A Depression, unspecified; F10.21 Alcohol dependence, in remission; Z87.891 Personal history of nicotine dependence; Z79.899 Other long term (current) drug therapy; Z88.8 Allergy status to other drugs, medicaments and biological substances; Z90.49 Acquired absence of other specified parts of digestive tract; Z90.710 Acquired absence of both cervix and uterus
CPT/HCPCS: 96374; 96413; 96415; A9270; J1720; J7050; Q5103